=== PATIENT | male | born 1945 | race Caucasian/White ===

== ENCOUNTER 2018-01-12 10:25 | Emergency (ER) | payer MEDICARE, OTHER ==
[2018-01-12 11:18] LABS: BASOPHILS % (AUTO) 0.4 %; EOSINOPHILS % (AUTO) 0.4 %; HGB - HEMOGLOBIN 15.4 g/dL (14.0-18.0); LYMPHOCYTES # (AUTO) 0.6 10^3/uL (1.5-3.5); LYMPHOCYTES % (AUTO) 6.8 %; MEAN CORPUSCULAR HEMOGLOBIN 32.8 pg (27.0-31.0); MEAN CORPUSCULAR HGB CONC 34.5 g/dL (32.0-36.0); MEAN CORPUSCULAR VOLUME 95.1 fL (80.0-94.0); MEAN PLATELET VOLUME 10.4 fL (7.4-11.4); MONOCYTES # (AUTO) 0.4 10^3/uL (0.0-1.0); MONOCYTES % (AUTO) 5.4 %; NEUTROPHILS # (AUTO) 7.1 10^3/uL (1.5-6.6); PLT - PLATELET COUNT 113 10^3/uL (130-450); RED BLOOD COUNT 4.71 10^6/uL (4.70-6.10); RED CELL DISTRIBUTION WIDTH 13.8 % (12.0-15.0); WHITE BLOOD COUNT 8.2 x10^3/uL (4.8-10.8)
--- NOTE | 2018-01-12 11:20 | XRAY Report ---
Reason: chest pain Procedure Date: 01/12/2018 Accession Number: [id number] / [id number] Procedure: XR - Chest 2 View X-Ray CPT Code: 81131 FULL RESULT: EXAM: CHEST RADIOGRAPHY EXAM DATE: 01/12/2018 10:55 AM. CLINICAL HISTORY: Chest pain. COMPARISON: None. TECHNIQUE: 2 views. FINDINGS: Lungs/Pleura: No focal opacities evident. No pleural effusion. No pneumothorax. Normal volumes. Mediastinum: Heart and mediastinal contours are unremarkable. Other: The patient is status post median sternotomy, CABG and TAVR. IMPRESSION: No focal consolidation. RADIA
[2018-01-12 11:29] LABS: ALBUMIN 4.3 g/dL (3.2-5.5); ALBUMIN/GLOBULIN RATIO 1.6 (1.0-2.2); BILIRUBIN,TOTAL 0.7 mg/dL (0.2-1.0); CALCIUM 9.4 mg/dL (8.5-10.3); CREATININE 1.4 mg/dL (0.6-1.2)
[2018-01-12] MEDS ORDERED: KETOROLAC 60 MG/2 ML VIAL IVP STA (12:24)
--- NOTE | 2018-01-12 12:41 | ED Physician Documentation ---
PD HPI CHEST PAIN - Stated complaint Stated Complaint: CHEST PAIN - Chief complaint Chief Complaint: Cardiac - History obtained from History obtained from: Patient, Family - History of Present Illness Timing - onset: How many hours ago (9) Timing - onset during: Rest Timing - duration: Hours (9) Timing - details: Constant Pain level max: 9 Pain level now: 9 Quality: Tightness, Aching Location: Left chest Radiation: No: Jaw, Neck, Back, Abdominal, Left upper extremity, Right upper extremity Improved by: Nothing. No: Rest, Oxygen, Nitro, ASA, Antacids, Other medication Worsened by: Inspiration, Movement. No: Exertion, Eating, Palpation, Position Associated symptoms: Nausea, Vomiting (once). No: Shortness of air, Diapho resis, Feeling faint / dizzy, General Weakness, Palpitations, Cough Similar symptoms before: Has not had sx before Recently seen: Not recently seen Review of Systems Constitutional: denies: Fever, Chills Ears: denies: Ear pain Nose: denies: Rhinorrhea / runny nose, Congestion Throat: denies: Sore throat Cardiac: denies: Chest pain / pressure Respiratory: denies: Cough Skin: denies: Rash Musculoskeletal: denies: Neck pain, Back pain Neurologic: denies: Headache PD PAST MEDICAL HISTORY - Past Medical History Past Medical History: Yes Cardiovascular: Angina, Valve disorder Respiratory: Emphysema Neuro: None Endocrine/Autoimmune: None GI: Diverticulitis : Benign prostate hypertrophy HEENT: None Psych: None Musculoskeletal: None Derm: None - Past Surgical History Past Surgical History: Yes Cardiovascular: Valve replacement, Fempop bypass - Present Medications Home Medications: Ambulatory Orders Medication Instructions Recorded Confirmed Aspirin Chewable [St Yony 81 mg 01/12/18 Aspirin] Atorvastatin Calcium 200 mg 01/12/18 Colchicine 0.5 tab 01/12/18 Furosemide 40 mg 01/12/18 Meloxicam [Mobic] 15 mg PO DAILY PRN #20 tablet 01/12/18 Metoprolol Succinate/Hctz 1 tab 01/12/18 [Metoprolol ER-Hctz 25-12.5 mg] Tamsulosin [Flomax] 0.4 mg 01/12/18 - Allergies Allergies/Adverse Reactions: Allergies Allergy/AdvReac Type Severity Reaction Status Date / Time No Known Drug Allergies Allergy Verified 01/12/18 10:38 - Social History Does the pt smoke?: No Smoking Status: Never smoker Does the pt drink ETOH?: No Does the pt have substance abuse?: No - Immunizations Immunizations are current?: Yes - POLST Patient has POLST: No PD ED PE NORMAL - Vitals Vital signs reviewed: Yes - General General: Alert and oriented X 3, No acute distress - HEENT HEENT: Moist mucous membranes - Neck Neck: Supple, no meningeal sign - Cardiac Cardiac: RRR, Strong equal pulses - Respiratory Respiratory: No respiratory distress, Clear bilaterally - Abdomen Abdomen: Soft, Non tender, Non distended - Back Back: No CVA TTP, No spinal TTP - Derm Derm: Warm and dry - Extremities Extremities: No edema, No calf tenderness / cord - Neuro Neuro: Alert and oriented X 3 - Psych Psych: Normal mood, Normal affect Results - Vitals Vitals: Vital Signs - 24 hr 01/12/18 01/12/18 01/12/18 10:33 13:07 13:49 Temperature 36 C L Heart Rate 60 70 67 Respiratory 22 18 14 Rate Blood Pressure 121/83 H 107/76 104/71 O2 Saturation 96 98 97 01/12/18 14:43 Temperature Heart Rate 62 Respiratory 16 Rate Blood Pressure 109/78 O2 Saturation 96 Oxygen O2 Source Room air - EKG (time done) 1033 Rate: Rate (enter#) (58) Rhythm: NSR Intervals: Prolonged [place], LBBB Compare to prior EKG: Old EKG unavailable 1411 Rate: Rate (enter#) (62) Rhythm: NSR [place]: Normal Intervals: Prolonged AK, LBBB Compare to prior EKG: Unchanged from prior EKG - Labs Labs: Laboratory Tests 01/12/18 01/12/18 01/12/18 11:11 11:11 11:11 WBC 8.2 RBC 4.71 Hgb 15.4 Hct 44.8 MCV 95.1 H MCH 32.8 H MCHC 34.5 RDW 13.8 Plt Count 113 L MPV 10.4 Neut # (Auto) 7.1 H Lymph # (Auto) 0.6 L [place] # (Auto) 0.4 Eos # (Auto) 0.0 Baso # (Auto) 0.0 Absolute Nucleated RBC 0.00 Nucleated RBC % 0.0 Sodium 138 Potassium 4.1 Chloride 101 Carbon Dioxide 28 Anion Gap 9.0 BUN 21 H Creatinine 1.4 H Estimated GFR (MDRD) 50 L Glucose 145 H Calcium 9.4 Total Bilirubin 0.7 AST 29 ALT 25 Alkaline Phosphatase 147 H Troponin I < 0.04 Total Protein 7.0 Albumin 4.3 Globulin 2.7 Albumin/Globulin Ratio 1.6 Lipase 28 01/12/18 13:59 WBC RBC Hgb Hct MCV MCH MCHC RDW Plt Count MPV Neut # (Auto) Lymph # (Auto) [place] # (Auto) Eos # (Auto) Baso # (Auto) Absolute Nucleated RBC Nucleated RBC % Sodium Potassium Chloride Carbon Dioxide Anion Gap BUN Creatinine Estimated GFR (MDRD) Glucose Calcium Total Bilirubin AST ALT Alkaline Phosphatase Troponin I < 0.04 Total Protein Albumin Globulin Albumin/Globulin Ratio Lipase - Rads (name of study) cxr Radiology: Prelim report reviewed, EMP read contemporaneously, See rad report (No focal consolidation. ) PD MEDICAL DECISION MAKING - ED course Complexity details: reviewed results, re-evaluated patient, considered differential, d/w patient ED course: Patient with atypical constant chest pain today. Symptoms resolved with toradol. No acute findings on EKG x 2. Negative troponin x2. 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 No history of CAD. Normal cardiac stress test per pt 06/10. We will have patient follow-up closely with his PCP for further evaluation and care. Patient counseled regarding signs and symptoms for which I believe and urgent re-evaluation would be necessary. Patient with good understanding of and agreement to plan and is comfortable going home at this time This document was made in part using voice recognition software. While efforts are made to proofread this document, sound alike and grammatical errors may occur. - Sepsis Event Vital Signs: Vital Signs - 24 hr 01/12/18 01/12/18 01/12/18 10:33 13:07 13:49 Temperature 36 C L Heart Rate 60 70 67 Respiratory 22 18 14 Rate Blood Pressure 121/83 H 107/76 104/71 O2 Saturation 96 98 97 01/12/18 14:43 Temperature Heart Rate 62 Respiratory 16 Rate Blood Pressure 109/78 O2 Saturation 96 Oxygen O2 Source Room air Departure - Departure Disposition: 01 Home, Self Care Clinical Impression: Chest pain Qualifiers: Chest pain type: unspecified Qualified Code(s): R07.9 - Chest pain, unspecified Condition: Good Instructions: ED Chest Pain Atypical Unkn Cause Follow-Up: your,doctor in 3 days. [Other] Prescriptions: Meloxicam [Mobic] 15 mg PO DAILY PRN #20 tablet PRN Reason: pain Comments: Return if you worsen. Continue your aspirin at home. Follow-up closely with your doctor for further evaluation and care. Discharge Date/Time: 01/12/18 14:48
[2018-01-12 14:43] VITALS: BP 109/78
== END 2018-01-12 14:48 | disposition home or self-care (01) ==
LOC: ED 10:25
DX: R07.9 Chest pain, unspecified (principal); I44.7 Left bundle-branch block, unspecified; Z95.2 Presence of prosthetic heart valve; Z95.1 Presence of aortocoronary bypass graft; Z79.82 Long term (current) use of aspirin
CPT/HCPCS: 36415; 71046; 80053; 83690; 84484; 85025; 93005; 96374; 99284

== ENCOUNTER 2018-10-01 12:39 | Inpatient (IN) | payer MEDICAID, MEDICARE ==
[2018-10-01] MEDS ORDERED: ONDANSETRON 4 MG/2 ML VIAL IVP STA (13:03)
[2018-10-01] MEDS ORDERED: SODIUM CHLORIDE 0.9% 1,000 ML IV ONE (13:03)
[2018-10-01] MEDS ORDERED: HYDROmorphone 1 MG/ML CARPUJECT IVP STA (13:03)
--- NOTE | 2018-10-01 13:09 | ED Physician Documentation ---
PD HPI ABD PAIN - Stated complaint Stated Complaint: ABD PX - Chief complaint Chief Complaint: Abd Pain - History obtained from History obtained from: Patient, Family - History of Present Illness Timing - onset: How many days ago (3) Timing - duration: Days (3) Timing - details: Gradual onset (after eating) Pain level max: 7 Pain level now: 7 Quality: Aching, Other (can't get comfortable) Location: RUQ Radiation: Right shoulder Improved by: Other (after taking a melatonin) Worsened by: Eating Associated symptoms: Nausea, Vomiting. No: Fever, Hematemesis, Diarrhea, Constipation, Melena, Hematochezia, Dysuria, Hematuria, Chest pain, Dizzy, Near syncope / syncope Similar symptoms before: Has not had sx before Recently seen: Not recently seen - Additional information Additional information: Patient states pain got a little worse after eating. Hasn't been able to sleep much because of the pain. Last meal was this morning at 9am. He ate a little bit of yogurt. Can barely eat because of pain. Vomited once today. Review of Systems Ten Systems: 10 systems reviewed and negative Constitutional: denies: Fever, Chills Cardiac: denies: Chest pain / pressure Respiratory: denies: Dyspnea GI: reports: Abdominal Pain, Nausea, Vomiting. denies: Diarrhea, Hematemesis Skin: denies: Rash Neurologic: denies: Generalized weakness PD PAST MEDICAL HISTORY - Past Medical History Past Medical History: Yes Cardiovascular: Angina, Valve disorder Respiratory: Emphysema Neuro: None Endocrine/Autoimmune: None GI: Diverticulitis : Benign prostate hypertrophy HEENT: None Psych: None Musculoskeletal: None Derm: None - Past Surgical History Past Surgical History: Yes Cardiovascular: Valve replacement, Fempop bypass - Present Medications Home Medications: Ambulatory Orders Medication Instructions Recorded Confirmed Aspirin Chewable [St Yony 81 mg 01/12/18 Aspirin] Atorvastatin Calcium 200 mg 01/12/18 Colchicine 0.5 tab 01/12/18 Furosemide 40 mg 01/12/18 Meloxicam [Mobic] 15 mg PO DAILY PRN #20 tablet 01/12/18 Metoprolol Succinate/Hctz 1 tab 01/12/18 [Metoprolol ER-Hctz 25-12.5 mg] Tamsulosin [Flomax] 0.4 mg 01/12/18 - Allergies Allergies/Adverse Reactions: Allergies Allergy/AdvReac Type Severity Reaction Status Date / Time No Known Drug Allergies Allergy Verified 01/12/18 10:38 - Social History Does the pt smoke?: No Smoking Status: Never smoker Does the pt drink ETOH?: No Does the pt have substance abuse?: No - Immunizations Immunizations are current?: Yes - POLST Patient has POLST: No PD ED PE NORMAL - Vitals Vital signs reviewed: Yes - General General: Alert and oriented X 3, No acute distress, Well developed/nourished - HEENT HEENT: Atraumatic, Pharynx benign - Neck Neck: Supple, no meningeal sign, No JVD - Cardiac Cardiac: RRR, No murmur, No gallop, No rub - Respiratory Respiratory: No respiratory distress - Abdomen Abdomen: Soft, Non distended, Other (moderate RUQ tenderness, positive [place] sign) - Male Male : Deferred - Rectal Rectal: Deferred - Derm Derm: Normal color, Warm and dry, No rash - Extremities Extremities: No deformity - Neuro Neuro: Alert and oriented X 3 Eye Opening: Spontaneous Motor: Obeys Commands Verbal: Oriented GCS Score: 15 - Psych Psych: Normal mood, Normal affect Results - Vitals Vitals: Vital Signs - 24 hr 10/01/18 10/01/18 10/01/18 12:43 12:50 13:20 Temperature 36.5 C Heart Rate 42 L 42 L 72 Respiratory 18 18 16 Rate Blood Pressure 92/66 92/66 91/57 L O2 Saturation 97 97 92 10/01/18 10/01/18 10/01/18 13:30 14:00 14:30 Temperature Heart Rate 76 72 70 Respiratory 16 18 16 Rate Blood Pressure 92/58 L 98/70 109/43 L O2 Saturation 92 92 100 10/01/18 10/01/18 10/01/18 14:50 14:59 15:00 Temperature Heart Rate 68 71 70 Respiratory 16 Rate Blood Pressure 87/43 L 95/65 95/65 O2 Saturation 87 L 95 95 10/01/18 10/01/18 15:30 16:30 Temperature Heart Rate 67 71 Respiratory 16 16 Rate Blood Pressure 98/71 93/65 O2 Saturation 93 95 Oxygen O2 Source Nasal cannula - Labs Labs: Laboratory Tests 10/01/18 10/01/18 10/01/18 13:15 13:15 13:15 WBC 16.7 H RBC 4.53 L Hgb 14.4 Hct 42.5 MCV 93.7 MCH 31.8 H MCHC 33.9 RDW 13.9 Plt Count 102 L MPV 10.6 Neut # (Auto) 14.2 H Lymph # (Auto) 0.8 L [place] # (Auto) 1.6 H Eos # (Auto) 0.0 Baso # (Auto) 0.1 Absolute Nucleated RBC 0.00 Band Neuts % (Manual) Not Reportable Abnorm Lymph % (Manual) Not Reportable Nucleated RBC % 0.0 Neutrophils # (Manual) Not Reportable Lymphocytes # (Manual) Not Reportable Monocytes # (Manual) Not Reportable Eosinophils # (Manual) Not Reportable Basophils # (Manual) Not Reportable Differential Comment MANUAL=AUTO DIFF Manual Slide Review Indicated WBC Morphology NORMAL APPEARANCE Platelet Estimate DECREASED (<130,000) Platelet Morphology 1+ LARGE PLATELETS RBC Morph Micro Appear NORMAL APPEARANCE PT INR Sodium 133 L Potassium 3.9 Chloride 93 L Carbon Dioxide 26 Anion Gap 14.0 H BUN 47 H Creatinine 2.0 H Estimated GFR (MDRD) 33 L Glucose 109 H Lactic Acid Calcium 9.2 Total Bilirubin 2.2 H AST 20 ALT 19 Alkaline Phosphatase 105 B-Natriuretic Peptide Total Protein 6.8 Albumin 3.6 Globulin 3.2 Albumin/Globulin Ratio 1.1 Lipase 23 22 Urine Color Urine Clarity Urine pH Ur Specific [place] Urine Protein Urine Glucose (UA) Urine Ketones Urine Occult Blood Urine Nitrite Urine Bilirubin Urine Urobilinogen Ur Leukocyte Esterase Ur Microscopic Review Urine Culture Comments 10/01/18 10/01/18 10/01/18 13:15 13:18 16:26 WBC RBC Hgb Hct MCV MCH MCHC RDW Plt Count MPV Neut # (Auto) Lymph # (Auto) [place] # (Auto) Eos # (Auto) Baso # (Auto) Absolute Nucleated RBC Band Neuts % (Manual) Abnorm Lymph % (Manual) Nucleated RBC % Neutrophils # (Manual) Lymphocytes # (Manual) Monocytes # (Manual) Eosinophils # (Manual) Basophils # (Manual) Differential Comment Manual Slide Review WBC Morphology Platelet Estimate Platelet Morphology RBC Morph Micro Appear PT 13.8 H INR 1.2 Sodium Potassium Chloride Carbon Dioxide Anion Gap BUN Creatinine Estimated GFR (MDRD) Glucose Lactic Acid 1.2 Calcium Total Bilirubin AST ALT Alkaline Phosphatase B-Natriuretic Peptide Total Protein Albumin Globulin Albumin/Globulin Ratio Lipase Urine Color YELLOW Urine Clarity CLEAR Urine pH 5.5 Ur Specific [place] 1.010 Urine Protein NEGATIVE Urine Glucose (UA) NEGATIVE Urine Ketones NEGATIVE Urine Occult Blood NEGATIVE Urine Nitrite NEGATIVE Urine Bilirubin NEGATIVE Urine Urobilinogen 0.2 (NORMAL) Ur Leukocyte Esterase NEGATIVE Ur Microscopic Review NOT INDICATED Urine Culture Comments NOT INDICATED 10/01/18 16:26 WBC RBC Hgb Hct MCV MCH MCHC RDW Plt Count MPV Neut # (Auto) Lymph # (Auto) [place] # (Auto) Eos # (Auto) Baso # (Auto) Absolute Nucleated RBC Band Neuts % (Manual) Abnorm Lymph % (Manual) Nucleated RBC % Neutrophils # (Manual) Lymphocytes # (Manual) Monocytes # (Manual) Eosinophils # (Manual) Basophils # (Manual) Differential Comment Manual Slide Review WBC Morphology Platelet Estimate Platelet Morphology RBC Morph Micro Appear PT INR Sodium Potassium Chloride Carbon Dioxide Anion Gap BUN Creatinine Estimated GFR (MDRD) Glucose Lactic Acid Calcium Total Bilirubin AST ALT Alkaline Phosphatase B-Natriuretic Peptide 46 Total Protein Albumin Globulin Albumin/Globulin Ratio Lipase Urine Color Urine Clarity Urine pH Ur Specific [place] Urine Protein Urine Glucose (UA) Urine Ketones Urine Occult Blood Urine Nitrite Urine Bilirubin Urine Urobilinogen Ur Leukocyte Esterase Ur Microscopic Review Urine Culture Comments - Rads (name of study) No standard instances Radiology: Final report received (RUQ US demonstrates acute cholecystitis with CBD of 13mm) PD MEDICAL DECISION MAKING - ED course Complexity details: reviewed results, re-evaluated patient, considered carson haq, d/w patient, d/w family ED course: DDx - appendicitis, cholecystitis, cholelithiasis, pancreatitis, gastritis, PUD, kidney stone 72 y/o M with RUQ abdominal pain, + murphys, leukocytosis present with L shift. Bedside US shows a large gallstone with GB wall thickening. Radiology US confirms the same and measured CBD of 13mm c/w cholecystitis. elevated bilirubin on LFts. Pt feels better after dilaudid. Pt given IV fluids though states SBP of 95 is normal for him. Discussed case with - surgery and initiated antibiotics - zosyn. Dr Whitfield requested a CT abd/pelvis to further evaluate his pancreas. Pt is NPO. Admitted to Surgery for likely OR. Departure - Departure Disposition: 66 [facility] DC/Xfer Clinical Impression: Acute cholecystitis Condition: Stable Record reviewed to determine appropriate education?: Yes
[2018-10-01 13:35] LABS: GLUCOSE, URINE (UA) NEGATIVE (NEGATIVE); KETONES,URINE (UA) NEGATIVE (NEGATIVE); LEUKOCYTE ESTERASE, URINE NEGATIVE (NEGATIVE); NITRITE,URINE NEGATIVE (NEGATIVE); OCCULT BLOOD,URINE NEGATIVE (NEGATIVE); PH,URINE 5.5 PH (5.0-7.5); PROTEIN,URINE NEGATIVE (NEGATIVE); UROBILINOGEN,URINE 0.2 (NORMAL) E.U./dL (NORMAL)
[2018-10-01 13:37] LABS: BASOPHILS # (AUTO) 0.1 10^3/uL (0.0-0.1); BASOPHILS % (AUTO) 0.7 %; HGB - HEMOGLOBIN 14.4 g/dL (14.0-18.0); LYMPHOCYTES # (AUTO) 0.8 10^3/uL (1.5-3.5); LYMPHOCYTES % (AUTO) 4.6 %; MEAN CORPUSCULAR HEMOGLOBIN 31.8 pg (27.0-31.0); MEAN CORPUSCULAR HGB CONC 33.9 g/dL (32.0-36.0); MEAN CORPUSCULAR VOLUME 93.7 fL (80.0-94.0); MEAN PLATELET VOLUME 10.6 fL (7.4-11.4); MONOCYTES # (AUTO) 1.6 10^3/uL (0.0-1.0); MONOCYTES % (AUTO) 9.8 %; NEUTROPHILS # (AUTO) 14.2 10^3/uL (1.5-6.6); NEUTROPHILS % (AUTO) 84.9 %; PLT - PLATELET COUNT 102 10^3/uL (130-450); RED BLOOD COUNT 4.53 10^6/uL (4.70-6.10); RED CELL DISTRIBUTION WIDTH 13.9 % (12.0-15.0); WHITE BLOOD COUNT 16.7 x10^3/uL (4.8-10.8)
[2018-10-01 13:44] LABS: CLARITY,URINE CLEAR (CLEAR)
[2018-10-01 13:45] LABS: BILIRUBIN,URINE NEGATIVE (NEGATIVE); ICTOTEST,URINE NEGATIVE
[2018-10-01 13:52] LABS: ALBUMIN 3.6 g/dL (3.2-5.5); ALBUMIN/GLOBULIN RATIO 1.1 (1.0-2.2); BILIRUBIN,TOTAL 2.2 mg/dL (0.2-1.0); CALCIUM 9.2 mg/dL (8.5-10.3); TOTAL PROTEIN 6.8 g/dL (6.7-8.2)
[2018-10-01 14:16] LABS: PLATELET ESTIMATE, MANUAL DECREASED (<130,000) (NORMAL); PLATELET MORPHOLOGY 1+ LARGE PLATELETS (NORMAL); RBC MORPHOLOGY (MULTIPLE) NORMAL APPEARANCE (NORMAL)
[2018-10-01 14:17] LABS: DIFFERENTIAL COMMENT MANUAL=AUTO DIFF
--- NOTE | 2018-10-01 14:48 | Ultrasound Report ---
Reason: RUQ, gallstone present Procedure Date: 10/01/2018 Accession Number: [id number] / [id number] Procedure: US - Abdomen Limited CPT Code: FULL RESULT: EXAM: ABDOMEN ULTRASOUND LIMITED, RUQ EXAM DATE: 10/01/2018 02:32 PM. CLINICAL HISTORY: RUQ, gallstone present. COMPARISON: None. TECHNIQUE: Real-time scanning was performed with static images obtained. FINDINGS: Liver: There is diffuse increased echotexture of the hepatic parenchyma, suggestive of steatosis. There are smaller hypoechoic ill-defined regions in the liver with nonfocal appearance, most consistent with fatty sparing. 18.4 cm. Main portal vein flow: Hepatopetal. Gallbladder: Single shadowing nonmobile gallstone is seen in the neck measuring 2.3 x 1.7 x 1.6 cm. There is intraluminal sludge. Gallbladder wall is thick and edematous and irregular. Sonographic Mullen sign is positive. Overall findings suggestive of acute calculus cholecystitis. Biliary System: CBD measures 13 mm, however no distal CBD mass noted. Mild intrahepatic or extrahepatic ductal dilatation. Other: Normal-appearing right kidney. No hydronephrosis. IMPRESSION: Single shadowing gallstone in the neck of the gallbladder with thickened, edematous, irregular wall and tenderness in right upper quadrant. Findings favor acute calculus cholecystitis. Dilated CBD, measuring 13 mm. Diffuse increased echotexture of liver with smaller hypoechoic ill-defined regions with nonfocal appearance. Most consistent with focal fatty sparing. Dilated CBD and mild intrahepatic biliary radicle dictation. However, no distal CBD mass. RADIA
[2018-10-01] MEDS ORDERED: PIPERACILLIN/TAZOBACTAM 3.375 GM in SODIUM CHLORIDE 0.9% MINIBAG 100 ML IV STA (15:05)
[2018-10-01] MEDS ORDERED: IOVERSOL 320 100 ML VIAL IVP ONE (15:52)
--- NOTE | 2018-10-01 16:07 | HISTORY & PHYSICAL EXAMINATION ---
Chief Complaint - Chief Complaint Chief Complaint: Abdominal pain with associated nausea and emesis, anorexia and generalized Abdominal Pain HPI - History Obtained From Records Reviewed: RN notes reviewed History obtained from: Patient Exam limitations: No limitations - History of Present Illness Severity at the worst: Moderate Pain Quality: Sharp Context-Pain started w/: Eating Improved with: Oxygen Worsened by: Eating Associated symptoms: Nausea, Vomiting, General Weakness HPI Comment/Other: This is a pleasant 72-year-old male with multiple cardiovascular comorbidities to include an aortic valve repair x2 at the [facility] (bioprosthetic valve), hypertension, hyperlipidemia, non-O2 dependent COPD- emphysema, diverticulitis, BPH, previous femoropopliteal bypass who presents to the ER with 1 or 2-day history of worsening right upper quadrant abdominal pain with associated anorexia exacerbated by eating. Patient's last meal was this a.m. at 9, a little bit a yogurt but can barely eat due to the pain. Had nonbilious non-bloody emesis x1. In the ED patient had a white count of 16.7, pl atelets of 102, sodium 133, creatinine of 2.0, ultrasound of the abdomen showed gallstone neck of gallbladder with thickened edematous and irregular wall tenderness with positive Mullen sign consistent with an acute calculus cholecystitis. Medical consultation was requested by Dr. Ankur Whitfield for the reason of medical management for patient's cardiovascular comorbidities. PMH/PSH - Past Medical History Cardiovascular: positive: Angina, Valve disorder Respiratory: positive: Emphysema Neuro: positive: None Endocrine/Autoimmune: positive: None GI: positive: Diverticulitis : positive: Benign prostate hypertrophy HEENT: positive: None Psych: positive: None Musculoskeletal: positive: None Derm: positive: None - Past Surgical History Cardiovascular: positive: Valve replacement, Fempop bypass Social & Family Hx - Social History Does the pt smoke?: No Smoking Status: Never smoker Does the pt drink ETOH?: No Does the pt have substance abuse?: No - POLST Patient has POLST: No Meds/Allgy - Home Medications Home Medications: Ambulatory Orders Medication Instructions Recorded Confirmed Aspirin Chewable [[facility] [place]ony 81 mg 01/12/18 Aspirin] Atorvastatin Calcium 200 mg 01/12/18 Colchicine 0.5 tab 01/12/18 Furosemide 40 mg 01/12/18 Meloxicam [Mobic] 15 mg PO DAILY PRN #20 tablet 01/12/18 Metoprolol Succinate/Hctz 1 tab 01/12/18 [Metoprolol ER-Hctz 25-12.5 mg] Tamsulosin [Flomax] 0.4 mg 01/12/18 - Allergies Allergies/Adverse Reactions: Allergies Allergy/AdvReac Type Severity Reaction Status Date / Time No Known Drug Allergies Allergy Verified 01/12/18 10:38 Review of Systems - All Other Systems All Other Systems: reports: Reviewed and negative Prior Level of Functionality: Patient has functional capacity that is independent, performs home ADLs adequately Exam - Vital Signs Reviewed Vital Signs: Yes Vital Signs: Vital Signs x48h Temp Pulse Resp BP Pulse Ox 10/01/18 15:30 67 16 98/71 93 10/01/18 15:00 70 16 95/65 95 10/01/18 14:59 71 95/65 95 10/01/18 14:50 68 87/43 L 87 L 10/01/18 14:30 70 16 109/43 L 100 10/01/18 14:00 72 18 98/70 92 10/01/18 13:30 76 16 92/58 L 92 10/01/18 13:20 72 16 91/57 L 92 10/01/18 12:50 42 L 18 92/66 97 10/01/18 12:43 36.5 C 42 L 18 92/66 97 - Physical Exam General Appearance: positive: No acute distress, Alert, Anxious Eyes Bilateral: positive: Normal inspection, PERRL, EOMI ENT: positive: ENT inspection nml, Pharynx nml, No signs of dehydration Neck: positive: Nml inspection, Thyroid nml, No JVD, Trachea midline. negative: Thyromegaly Respiratory: positive: Chest non-tender, No respiratory distress, Breath sounds nml Cardiovascular: positive: Regular rate & rhythm, Systolic murmur (Aortic crescendo decrescendo type murmur). negative: No gallop, PMI displaced laterally, JVD present, Gallop/S3 Peripheral Pulses: positive: 2+ Abdomen: positive: No organomegaly, No distention, Tenderness (Right upper quadrant pain). negative: Guarding, Rebound, Hepatomegaly, Splenomegaly, Abnml bowel sounds, Bruit Back: positive: Nml inspection Skin: positive: Color nml, No rash, Warm Extremities: positive: Non-tender, Full ROM, Nml appearance, Pedal edema Neurologic/Psychiatric: positive: Oriented x3, CN's nml (2-12) Results - Lab Results Lab results reviewed: Yes Fish Bones: 10/01/18 13:15 10/01/18 13:15 Other Lab Results: Lab Results x24hrs 10/01/18 10/01/18 10/01/18 Range/Units 13:18 13:15 13:15 WBC (4.8-10.8) x10^3/uL RBC (4.70-6.10) 10^6/uL Hgb (14.0-18.0) g/dL Hct (42.0-52.0) % MCV (80.0-94.0) fL MCH (27.0-31.0) pg MCHC (32.0-36.0) g/dL RDW (12.0-15.0) % Plt Count (130-450) 10^3/uL MPV (7.4-11.4) fL Neut # (Auto) (1.5-6.6) 10^3/uL Lymph # (Auto) (1.5-3.5) 10^3/uL [place] # (Auto) (0.0-1.0) 10^3/uL Eos # (Auto) (0.0-0.7) 10^3/uL Baso # (Auto) (0.0-0.1) 10^3/uL Absolute Nucleated RBC x10^3/uL Band Neuts % (Manual) Abnorm Lymph % (Manual) Nucleated RBC % /100WBC Neutrophils # (Manual) Lymphocytes # (Manual) Monocytes # (Manual) Eosinophils # (Manual) Basophils # (Manual) Differential Comment Manual Slide Review WBC Morphology (NORMAL) Platelet Estimate (NORMAL) Platelet Morphology (NORMAL) RBC Morph Micro Appear (NORMAL) Sodium (135-145) mmol/L Potassium (3.5-5.0) mmol/L Chloride (101-111) mmol/L Carbon Dioxide (21-32) mmol/L Anion Gap (6-13) BUN (6-20) mg/dL Creatinine (0.6-1.2) mg/dL Estimated GFR (MDRD) (>89) Glucose (70-100) mg/dL Lactic Acid 1.2 (0.5-2.2) mmol/L Calcium (8.5-10.3) mg/dL Total Bilirubin (0.2-1.0) mg/dL AST (10-42) IU/L ALT (10-60) IU/L Alkaline Phosphatase (42-121) IU/L Total Protein (6.7-8.2) g/dL Albumin (3.2-5.5) g/dL Globulin (2.1-4.2) g/dL Albumin/Globulin Ratio (1.0-2.2) Lipase 22 (22-51) U/L Urine Color YELLOW Urine Clarity CLEAR (CLEAR) Urine pH 5.5 (5.0-7.5) PH Ur Specific [place] 1.010 (1.002-1.030) Urine Protein NEGATIVE (NEGATIVE) mg/dL Urine Glucose (UA) NEGATIVE (NEGATIVE) mg/dL Urine Ketones NEGATIVE (NEGATIVE) mg/dL Urine Occult Blood NEGATIVE (NEGATIVE) Urine Nitrite NEGATIVE (NEGATIVE) Urine Bilirubin NEGATIVE (NEGATIVE) Urine Urobilinogen 0.2 (NORMAL) (NORMAL) E.U./dL Ur Leukocyte Esterase NEGATIVE (NEGATIVE) Ur Microscopic Review NOT INDICATED Urine Culture Comments NOT INDICATED 10/01/18 10/01/18 Range/Units 13:15 13:15 WBC 16.7 H (4.8-10.8) x10^3/uL RBC 4.53 L (4.70-6.10) 10^6/uL Hgb 14.4 (14.0-18.0) g/dL Hct 42.5 (42.0-52.0) % MCV 93.7 (80.0-94.0) fL MCH 31.8 H (27.0-31.0) pg MCHC 33.9 (32.0-36.0) g/dL RDW 13.9 (12.0-15.0) % Plt Count 102 L (130-450) 10^3/uL MPV 10.6 (7.4-11.4) fL Neut # (Auto) 14.2 H (1.5-6.6) 10^3/uL Lymph # (Auto) 0.8 L (1.5-3.5) 10^3/uL [place] # (Auto) 1.6 H (0.0-1.0) 10^3/uL Eos # (Auto) 0.0 (0.0-0.7) 10^3/uL Baso # (Auto) 0.1 (0.0-0.1) 10^3/uL Absolute Nucleated RBC 0.00 x10^3/uL Band Neuts % (Manual) Not Reportable Abnorm Lymph % (Manual) Not Reportable Nucleated RBC % 0.0 /100WBC Neutrophils # (Manual) Not Reportable Lymphocytes # (Manual) Not Reportable Monocytes # (Manual) Not Reportable Eosinophils # (Manual) Not Reportable Basophils # (Manual) Not Reportable Differential Comment MANUAL=AUTO DIFF Manual Slide Review Indicated WBC Morphology NORMAL APPEARANCE (NORMAL) Platelet Estimate DECREASED (<130,000) (NORMAL) Platelet Morphology 1+ LARGE PLATELETS (NORMAL) RBC Morph Micro Appear NORMAL APPEARANCE (NORMAL) Sodium 133 L (135-145) mmol/L Potassium 3.9 (3.5-5.0) mmol/L Chloride 93 L (101-111) mmol/L Carbon Dioxide 26 (21-32) mmol/L Anion Gap 14.0 H (6-13) BUN 47 H (6-20) mg/dL Creatinine 2.0 H (0.6-1.2) mg/dL Estimated GFR (MDRD) 33 L (>89) Glucose 109 H (70-100) mg/dL Lactic Acid (0.5-2.2) mmol/L Calcium 9.2 (8.5-10.3) mg/dL Total Bilirubin 2.2 H (0.2-1.0) mg/dL AST 20 (10-42) IU/L ALT 19 (10-60) IU/L Alkaline Phosphatase 105 (42-121) IU/L Total Protein 6.8 (6.7-8.2) g/dL Albumin 3.6 (3.2-5.5) g/dL Globulin 3.2 (2.1-4.2) g/dL Albumin/Globulin Ratio 1.1 (1.0-2.2) Lipase 23 (22-51) U/L Urine Color Urine Clarity (CLEAR) Urine pH (5.0-7.5) PH Ur Specific [place] (1.002-1.030) Urine Protein (NEGATIVE) mg/dL Urine Glucose (UA) (NEGATIVE) mg/dL Urine Ketones (NEGATIVE) mg/dL Urine Occult Blood (NEGATIVE) Urine Nitrite (NEGATIVE) Urine Bilirubin (NEGATIVE) Urine Urobilinogen (NORMAL) E.U./dL Ur Leukocyte Esterase (NEGATIVE) Ur Microscopic Review Urine Culture Comments - Diagnostic Imaging Results Diagnostic Imaging Results: positive: Final report reviewed - EKG Results EKG Interpreted Independently: Yes EKG Comparison: positive: No prior EKG Sepsis Event Note (H) - Evaluation Current Stage of Sepsis: Sepsis Confirmed Source and Organism (if known) of Sepsis: Acute Calculus cholecystitis - Sepsis Criteria Sepsis Criteria: Respiratory: Increasing oxygen requirements, WBC count greater than 12,000 or less than 4000, Hepatic: Bilirubin greater than 2mg/dl Impression/Plan - Problem List Problem List: 1. Acute cholecystitis Abdominal ultrasound shows an acute calculus cholecystitis with gallstone in the neck of the gallbladder with associated thickening and edematous irregular wall with positive Mullen sign. CT abdomen pelvis to confirm. Possible HIDA scan. Dr. Whitfield aware and may perform surgery today or in a.m. N.p.o. status, Dilaudid as needed, Chest x-ray shows linear atelectasis but no infiltrates, BNP, INR, UA are unremarkable. Patient will get 2 sets of blood cultures how ever IV Zosyn has been given in the ED. 2. Sepsis secondary to #1 IV Zosyn started in the ED. We will continue with Zosyn postoperatively. Patient will likely receive preoperative IV antibiotics. Lactic acid was only 1.2. However patient had hypotension of 98/71 likely related to metoprolol ta abiodun earlier. Blood cultures x2 were ordered after patient was given Zosyn 1 dose in the ED. Continue with early goal-directed therapy if indicated with IV fluid resuscitation. 3. Acute renal insufficiency superimposed on chronic kidney disease Patient's prior creatinine was 1.4 unknown baseline however chronic kidney disease stage II underlying. Avoid nephrotoxic agents, of note patient had been on UltraSling, Lasix, as well as a combination of metoprolol ER/hydrochlorothiazide in the setting of acute nausea with emesis with GI losses. Component of prerenal azotemia likely. 4. Thrombocytopenia Likely secondary to sepsis and infection. We will continue to monitor. Currently off of aspirin as this would likely exacerbate thrombocytopenia. 5. Preoperative medical/cardiac assessmentPatient had a revised cardiac risk index of class II [id number], 6.0% 30-day risk of MT, cardiac arrest and/or . In addition patient had a group to perioperative risk of 0.7% JUSTIN, risk of MT, cardiac arrest, intraoperatively or up to 30-day postoperative. 6. Hyponatremia Likely secondary to GI losses. We will continue with IV fluids, patient is n.p.o., will continue to correct underlying electrolyte disturbances, check magnesium and correct. 7. Hyperlipidemia Unknown fasting lipid panel was previously on atorvastatin will hold for now in anticipation of lap scopic cholecystectomy 8. Hypertension Was previously on metoprolol ER/hydrochlorothiazide along with Lasix. Will hold for now. 9. History of gout Was on colchicine will be placed on hold for now 10. Non-O2 dependent COPD/emphysema Due to evidence of atelectasis seen on chest x-ray Postoperative incentive spirometry with pulmonary toileting essential. 11. Advance care education planning Patient has elected on full CODE STATUS with full treatment, trajectory of illness medical conditions as well as plan of care discussed with goals of care and trajectory of illness postoperatively, risks and benefits discussed. Patient would like aggressive medical management at this point. Would initiate DVT/GI prophylaxis: IV Protonix, DVT prophylaxis with SCD boots only. CODE STATUS: Full code Core Measures - Issues Hospital Issues and Management Plan: Patient to have possible laparoscopic cholecystectomy based on preoperative risk assessment and having cardiac/medical clearance for surgery. Medical management for cardiovascular medical issues. - DVT/VTE - Prophylaxis VTE/DVT Device ordered at admit?: Yes VTE/DVT Prophylaxis med ordered at admit?: No Not Ordered - Medical Reason: Not indicated - Stroke - Rehab Assessment Rehab services assessment to be ordered?: No Not Ordered - Medical Reason: Not indicated - AMI - Statin at Admit Aspirin Prescribed on Admit: No Not Ordered - Medical Reason: Not indicated
--- NOTE | 2018-10-01 16:28 | CT Report ---
Reason: cbd dilation, need eval of pancreas Procedure Date: 10/01/2018 Accession Number: [id number] / [id number] Procedure: CT - Abdomen/Pelvis W CPT Code: FULL RESULT: EXAM: CT ABDOMEN AND PELVIS EXAM DATE: 10/01/2018 04:06 PM. CLINICAL HISTORY: Cbd dilation, need eval of pancreas. COMPARISONS: ABDOMEN LIMITED 10/01/2018 1:24 PM. TECHNIQUE: Routine helical CT imaging was performed through the abdomen and pelvis. IV contrast: . Enteric contrast: No. Reconstructions: Coronal and sagittal. In accordance with CT protocol optimization, one or more of the following dose reduction techniques were utilized for this exam: automated exposure control, adjustment of mA and/or KV based on patient size, or use of iterative reconstructive technique. FINDINGS: Lung Bases: Atelectatic scarring is seen in right middle lobe, lingula and both lung bases. Liver: Hepatic steatosis. Gallbladder/Bile Ducts: Distended with a hyperdense calculus in the neck of the gallbladder, measuring 2.7 x 2 cm. Mucosal hyperenhancement with pericholecystic fluid and fat stranding is most suggestive of acute cholecystitis. CBD is dilated, measures 17 mm at the level of pancreatic head however no distal CBD calculus or mass. No periampullary or pancreatic head mass. Pancreatic parenchyma appears unremarkable. Spleen: Normal. Pancreas: Normal. Adrenal Glands: Normal. Kidneys: Normal. No masses or hydronephrosis. Peritoneal Cavity/Bowel: There is diffuse colonic diverticulosis however no diverticulitis. No free fluid, free air or adenopathy. No masses or acute inflammatory process. Status post appendectomy. Pelvic Organs: Normal. The bladder and visualized pelvic organs are within normal limits. Vasculature: No aneurysms or other significant abnormality. Bones: No significant abnormality. Other: None. IMPRESSION: CT findings favor acute calculus cholecystitis with a large oval-shaped hyperdense calculus in the neck of the gallbladder. Dilated CBD, 17 mm. However no distal CBD, pancreatic or periampullary mass. Diffuse colonic diverticulosis however no diverticulitis. Status post appendectomy. RADIA
[2018-10-01] MEDS ORDERED: HYDROmorphone 1 MG/ML CARPUJECT IVP PRN (16:31)
[2018-10-01 16:41] LABS: INR 1.2 (0.8-1.2); PT - PROTHROMBIN TIME 13.8 secs (9.9-12.6)
--- NOTE | 2018-10-01 16:55 | XRAY Report ---
Reason: Shortness of breath with a history of COPD Procedure Date: 10/01/2018 Accession Number: [id number] / [id number] Procedure: XR - Chest 1 View X-Ray CPT Code: 02624 FULL RESULT: EXAM: CHEST RADIOGRAPHY EXAM DATE: 10/01/2018 04:34 PM. CLINICAL HISTORY: Shortness of breath with a history of COPD. COMPARISON: CHEST 2 VIEW 01/12/2018 10:44 AM ABDOMEN/PELVIS W/ 10/01/2018 4:06 PM. TECHNIQUE: 1 view. FINDINGS: Lungs/Pleura: There is reticular opacity within the right midlung which could represent atelectasis. No evidence of lobar infiltrate or large effusion. No pneumothorax. Mediastinum: There is mild cardiomegaly. Patient has undergone median sternotomy. Prosthetic aortic valve is in place. Other: None. IMPRESSION: 1. There is cardiomegaly. 2. Lung volumes are somewhat low. 3. Linear opacity within the right midlung may represent atelectasis. 4. No evidence of lobar infiltrate. No pneumothorax. RADIA
[2018-10-01] MEDS ORDERED: DEXTROSE 5%-0.9% NACL 1,000 ML IV SCH (17:00)
--- NOTE | 2018-10-01 17:04 | ANESTHESIA ---
Pre-Anesthesia VS, & Labs - Diagnosis cholelithiasis - Procedure laparoscopic cholecystectomy Vital Signs: Temp Pulse Resp BP Pulse Ox 36.5 C 71 16 93/65 95 10/01/18 12:43 10/01/18 16:30 10/01/18 16:30 10/01/18 16:30 10/01/18 16:30 Height 6 ft Weight (kg) 104.326 kg Body Mass Index 31.1 - NPO >8 hours - Lab Results Current Lab Results: Laboratory Tests 10/01/18 16:26: PT 13.8 H, INR 1.2 10/01/18 13:15: Lactic Acid 1.2 10/01/18 13:15: Lipase 22 10/01/18 13:15: Sodium 133 L, Potassium 3.9, Chloride 93 L, Carbon Dioxide 26, Anion Gap 14.0 H, BUN 47 H, Creatinine 2.0 H, Estimated GFR (MDRD) 33 L, Glucose 109 H, Calcium 9.2, Total Bilirubin 2.2 H, AST 20, ALT 19, Alkaline Phosphatase 105, Total Protein 6.8, Albumin 3.6, Globulin 3.2, Albumin/Globulin Ratio 1.1, Lipase 23 10/01/18 13:15: WBC 16.7 H, RBC 4.53 L, Hgb 14.4, Hct 42.5, MCV 93.7, MCH 31.8 H , MCHC 33.9, RDW 13.9, Plt Count 102 L, MPV 10.6, Neut # (Auto) 14.2 H, Lymph # (Auto) 0.8 L, [place] # (Auto) 1.6 H, Eos # (Auto) 0.0, Baso # (Auto) 0.1, Absolute Nucleated RBC 0.00, Band Neuts % (Manual) Not Reportable, Abnorm Lymph % (Manual) Not Reportable, Nucleated RBC % 0.0, Neutrophils # (Manual) Not Reportable, Lymphocytes # (Manual) Not Reportable, Monocytes # (Manual) Not Reportable, Eosinophils # (Manual) Not Reportable, Basophils # (Manual) Not Reportable, Differential Comment MANUAL=AUTO DIFF, Manual Slide Review Indicated, WBC Morphology NORMAL APPEARANCE, Platelet Estimate DECREASED (<130,000), Platelet Morphology 1+ LARGE PLATELETS, RBC Morph Micro Appear NORMAL APPEARANCE Lab results reviewed: Yes Fish Bones: 10/01/18 13:15 10/01/18 13:15 Home Medications and Allergies Active Medications Hydromorphone HCl (Dilaudid (Vial)) 1 mg IVP Q2H PRN PRN Reason: PAIN Dextrose/Sodium Chloride (D5ns) 1,000 mls @ 125 mls/hr IV .Q8H MARTINEZ Piperacillin Sod/Tazobactam (Sod 4.5 gm/ Sodium Chloride) 100 mls @ 200 mls/hr IV Q6H MARTINEZ Pantoprazole Sodium (Protonix) 40 mg IV BID MARTINEZ Aspirin Chewable [St [place]ony Aspirin] 81 mg 01/12/18 Atorvastatin Calcium 200 mg 01/12/18 Colchicine 0.5 tab 01/12/18 Furosemide 40 mg 01/12/18 Metoprolol Succinate/Hctz [Metoprolol ER-Hctz 25-12.5 mg] 1 tab 01/12/18 Tamsulosin [Flomax] 0.4 mg 01/12/18 Allergies/Adverse Reactions: Allergies Allergy/AdvReac Type Severity Reaction Status Date / Time No Known Drug Allergies Allergy Verified 01/12/18 10:38 Anes History & Medical History - Anesthetic History Anesthesia Complications: reports: No previous complications Family history of Anesthesia Complications: Denies Family history of Malignant Hyperthermia: Denies - Medical History Cardiovascular: reports: Angina, Valve disorder Pulmonary: reports: Emphysema Gastrointestinal: reports: Diverticulitis Urinary: reports: Benign prostate hypertrophy Neuro: reports: None Musculoskeletal: reports: None Endocrine/Autoimmune: reports: None Blood Disorders: reports: None Skin: reports: None Smoking Status: Never smoker - Surgical History Cardiothoracic: Valve replacement, Fempop bypass Results - EKG Results EKG Comparison: Reviewed EKG (01/12/18 LBBB) Exam General: Alert, Oriented x3, Cooperative Dental: Dentures full Upper, Dentures full Lower Mouth Openin Fingerbreadth Neck Mobility: Normal Mallampati classification: II Thyromental Distance: greater than 6 cm Respiratory: Lungs clear, Normal breath sounds Cardiovascular: Regular rate Neurological: Normal speech Mental/Cognitive Status: Alert/Oriented X3, Normal for patient Plan Anesthesia Type: General Consent for Procedure(s) Verified and Reviewed: Yes Code Status: Attempt Resuscitation ASA classification: 3-Severe systemic disease Is this case an emergency?: Yes
[2018-10-01] MEDS ORDERED: SODIUM CHLORIDE FLUSH 0.9% 10 ML SYRINGE ONE (17:19)
[2018-10-01] MEDS ORDERED: CEFEPIME 1 GM in SODIUM CHLORIDE 0.9% MINIBAG 100 ML IV STA (17:24)
--- NOTE | 2018-10-01 17:41 | CONSULTATION NOTE ---
Referring Provider Name of Referring Provider:: Dr. Zavala Consult Date: 10/01/18 Chief Complaint - Chief Complaint Chief Complaint: abd pain History of Present Illness - Admitted From Admitted From:: ER - History Obtained From Records Reviewed: yes History obtained from: pt, records Exam Limitations: none - History of Present Illness HPI Comment/Other: 72 yo male in his usual state of health until 2.5 days ago when he noted the onset of constant steady RUQ abd pain associated with N/V of nonbloody material. Sx persisted, he was unable to tolerate solid food, but able to keep liquids down. Because of no improvement, he presented to the ER for evaluation. No fever/chills, change in bowel habits, jaundice, acholic stools, wt loss. FH gallbladder disease in his mother. No hx FFI. A colonoscopy 3 yrs ago was favorable by report. FH "stomach cancer" in multiple relatives. ER evaluation included WBC 16K, Bili 2 with ow nl lft's, nl lipase, and abd US showing thickened gb wall, + sonographic Mullen's sign, dilated common bile duct, and large solitary stone impacted in the neck of the gallbladder. CT abd/pelvis confirms same with 17 mm CBD but no evidence of stone or tumor or any other etiology for the ductal dilatation. Surgical consultation was requested. Preop medical clearance was obtained from Dr. Zavala. See his separate report. 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 - Substance History Use: Uses substance without health or social issues: NONE - POLST Patient has POLST: No Meds/Allgy - Home Medications Home Medications: Ambulatory Orders Medication Instructions Recorded Confirmed Aspirin Chewable [St Yony 81 mg 01/12/18 Aspirin] Atorvastatin Calcium 200 mg 01/12/18 Colchicine 0.5 tab 01/12/18 Furosemide 40 mg 01/12/18 Meloxicam [Mobic] 15 mg PO DAILY PRN #20 tablet 01/12/18 Metoprolol Succinate/Hctz 1 tab 01/12/18 [Metoprolol ER-Hctz 25-12.5 mg] Tamsulosin [Flomax] 0.4 mg 01/12/18 - Allergies Allergies/Adverse Reactions: Allergies Allergy/AdvReac Type Severity Reaction Status Date / Time No Known Drug Allergies Allergy Verified 01/12/18 10:38 Review of Systems - Constitutional Constitutional: denies: Fever, Chills, Poor appetite, Weight gain, Weight loss - Cardiovascular Cariovascular: denies: Irregular heart rate, Chest pain, Lightheadedness, Syncope - Respiratory Respiratory: denies: Cough, Sputum production, SOB at rest - Gastrointestinal Gastrointestinal: reports: Abdominal pain, Nausea, Vomiting, Poor appetite. denies: Constipation, Diarrhea, Change in bowel habits, Rectal bleeding, Black stools, Bloody stools, Finn blood emesis, Coffee grounds emesis, Reflux/heartb urn - Genitourinary Genitourinary: denies: Dysuria, Frequency, Urgency, Hematuria - Hematologic/Lymphatic Hematologic/Lymphatic: denies: Anemia, Blood clots, Bleeding tendencies - All Other Systems All Other Systems: reports: Reviewed and negative Exam - Vital Signs Reviewed Vital Signs: Yes Vital Signs: Vital Signs x48h Temp Pulse Resp BP Pulse Ox 10/01/18 17:00 73 16 95/60 95 10/01/18 16:30 71 16 93/65 95 10/01/18 15:30 67 16 98/71 93 10/01/18 15:00 70 16 95/65 95 10/01/18 14:59 71 95/65 95 10/01/18 14:50 68 87/43 L 87 L 10/01/18 14:30 70 16 109/43 L 100 10/01/18 14:00 72 18 98/70 92 10/01/18 13:30 76 16 92/58 L 92 10/01/18 13:20 72 16 91/57 L 92 10/01/18 12:50 42 L 18 97 10/01/18 12:43 36.5 C 42 L 18 92/66 97 - Physical Exam General Appearance: positive: Alert, Moderate distress Eyes Bilateral: positive: Normal inspection, Conjunctivae nml, No scleral icterus ENT: positive: ENT inspection nml, Pharynx nml, No signs of dehydration Neck: positive: Thyroid nml, No JVD, Trachea midline. negative: Thyromegaly, Lymphadenopathy (R), Lymphadenopathy (L) Respiratory: positive: Chest non-tender, No respiratory distress, Breath sounds nml. negative: Wheezes, Rales, Rhonchi Cardiovascular: positive: Regular rate & rhythm, No murmur, No gallop Abdomen: positive: No organomegaly, Tenderness (RUQ; localized peritoneal signs; + Mullen's sign), Guarding, Rebound. negative: Hepatomegaly, Splenomegaly, Mass Skin: positive: Color nml, No rash, Warm, Dry Extremities: positive: Non-tender, No pedal edema. negative: Calf tenderness Neurologic/Psychiatric: positive: Oriented x3 Conclusion/Plan - Diagnosis Diagnosis: 1. Acute calculous cholecystitis, with possible early sepsis secondary to same. 2. Abnormal bile duct dilatation, etiology unclear and ddx includes distal stone, tumor. 3. Cardiovascular disease, stable clinically. - Plan Plan: Laparoscopic cholecystectomy with possible cholangiograms was recommended. PAR conference was held and consent obtained. Risk of need for open procedure or transfer for postop ERCP was discussed as well. The procedure will be performed later today. Thanks, - Lab Results Lab results reviewed: Yes Miguel Bones: 10/01/18 13:15 10/01/18 13:15 - Diagnostic Imaging Results Diagnostic Imaging Results: positive: Final report reviewed, Read independently Diagnostic Imaging Results Comments: See HPI
[2018-10-01] MEDS ORDERED: BUPIVACAINE 0.5%-EPI 1:200000 PF 30 ML VIAL ONE (17:56)
[2018-10-01] MEDS ORDERED: IOTHALAMATE MEGLUMINE 50 ML VIAL ONE (17:56)
[2018-10-01] MEDS ORDERED: PHENYLEPHRINE 50 MG/5 ML VIAL IV ONE (18:00)
[2018-10-01] MEDS ORDERED: ONDANSETRON 4 MG/2 ML VIAL IVP ONE (18:00)
[2018-10-01] MEDS ORDERED: PROPOFOL 200 MG/20 ML VIAL IVP ONE (18:00)
[2018-10-01] MEDS ORDERED: ePHEDrine 50 MG/ML VIAL IVP ONE (18:00)
[2018-10-01] MEDS ORDERED: DEXAMETHASONE 4 MG/ML VIAL IVP ONE (18:00)
[2018-10-01] MEDS ORDERED: fentaNYL 100 MCG/2 ML VIAL IVP ONE (18:00)
[2018-10-01] MEDS ORDERED: MIDAZOLAM 2 MG/2 ML VIAL IVP ONE (18:00)
[2018-10-01] MEDS ORDERED: ROCURONIUM 50 MG/5 ML VIAL IVP ONE (18:00)
[2018-10-01] MEDS ORDERED: ACETAMINOPHEN 1,000 MG/100 ML 100 ML IV ONE (18:00)
[2018-10-01] MEDS ORDERED: LIDOCAINE-MPF 2% 5 ML VIAL IM ONE (18:00)
[2018-10-01] MEDS ORDERED: SODIUM CHLORIDE 0.9% 10 ML VIAL IV ONE (18:00)
[2018-10-01] MEDS ORDERED: PIPERACILLIN/TAZOBACTAM 3.375 GM in SODIUM CHLORIDE 0.9% MINIBAG 100 ML IV SCH (18:00)
[2018-10-01] MEDS ORDERED: GLYCOPYRROLATE 1 MG/5 ML VIAL IVP ONE (18:00)
[2018-10-01] MEDS ORDERED: NEOSTIGMINE 1 MG/1 ML 10 ML MDV IVP ONE (18:00)
[2018-10-01] MEDS ORDERED: BUPIVACAINE 0.5%-EPI 1:200000 PF 30 ML VIAL SUBQ ONE ×2 (18:33)
--- NOTE | 2018-10-01 19:14 | XRAY Report ---
Reason: Cholangiogram Procedure Date: 10/01/2018 Accession Number: [id number] / [id number] Procedure: [place] - OR Cholangiogram CPT Code: FULL RESULT: EXAM: INTRAOPERATIVE CHOLANGIOGRAM EXAM DATE: 10/01/2018 07:05 PM. CLINICAL HISTORY: Cholangiogram. COMPARISONS: ABDOMEN/PELVIS W/ 10/01/2018 4:06 PM. TECHNIQUE: Dr. Whitfield performed the procedure. Please see the operative notes for details. Fluoroscopy Time: 5 seconds. Number of Images: 2. FINDINGS IMPRESSION: A catheter has been placed into the cystic duct remnant following cholecystectomy. Cholangiography shows opacification of the bile ducts. Visualized extrahepatic ducts show no filling defects. Spill of contrast into the duodenum documented. RADIA
[2018-10-01] MEDS ORDERED: LACTATED RINGERS 1,000 ML IV ONE (19:44)
[2018-10-01] MEDS ORDERED: ACETAMINOPHEN 1,000 MG/100 ML 100 ML IV PRN (19:59)
[2018-10-01] MEDS ORDERED: D5.45NS W/20 MEQ KCL 1,000 ML IV SCH (20:00)
[2018-10-01] MEDS ORDERED: ONDANSETRON 4 MG/2 ML VIAL IVP PRN (20:01)
[2018-10-01] MEDS ORDERED: PANTOPRAZOLE 40 MG VIAL IV SCH (21:00)
[2018-10-01] MEDS: PIPERACILLIN/TAZOBACTAM 2.25 GM in SODIUM CHLORIDE 0.9% MINIBAG 100 ML IV SCH (22:34)
[2018-10-01] MEDS: ALBUTEROL NEB 2.5 MG/3 ML INH PRN (22:37)
[2018-10-01] MEDS ORDERED: PHENOL THROAT SPRAY 177 ML MM PRN (23:10)
[2018-10-02 05:43] LABS: BASOPHILS % (AUTO) 0.1 %; LYMPHOCYTES # (AUTO) 0.3 10^3/uL (1.5-3.5); LYMPHOCYTES % (AUTO) 3.2 %; MEAN CORPUSCULAR HEMOGLOBIN 32.5 pg (27.0-31.0); MEAN CORPUSCULAR VOLUME 95.4 fL (80.0-94.0); MONOCYTES # (AUTO) 0.7 10^3/uL (0.0-1.0); NEUTROPHILS # (AUTO) 8.9 10^3/uL (1.5-6.6); NEUTROPHILS % (AUTO) 89.7 %; PLT - PLATELET COUNT 82 10^3/uL (130-450); RED BLOOD COUNT 4.02 10^6/uL (4.70-6.10); RED CELL DISTRIBUTION WIDTH 13.8 % (12.0-15.0); WHITE BLOOD COUNT 9.9 x10^3/uL (4.8-10.8)
--- NOTE | 2018-10-02 05:54 | OPERATIVE REPORT ---
DATE OF SERVICE: 10/01/2018 Physician: Ankur Whitfield MD PREOPERATIVE DIAGNOSIS: Acute calculus cholecystitis. POSTOPERATIVE DIAGNOSIS: Acute calculus cholecystitis. PROCEDURE PERFORMED: Laparoscopic cholecystectomy with intraoperative cholangiograms. ANESTHESIA: General endotracheal by Yuri Marley CRNA. SURGEON: Ankur Whitfield MD ESTIMATED BLOOD LOSS: 50 mL COMPLICATIONS: None. DRAINS: None. FINDINGS: Laparoscopy revealed severe hemorrhagic acute calculus cholecystitis with fibrinopurulent exudate in the omentum surrounding the gallbladder. The gallbladder wall was markedly thickened. As pirated bile had a seropurulent appearance. The cystic duct was enlarged to approximately 9 mm in di ameter. Cystic duct cholangiography showed a dilated common bile duct that appeared to taper normall y and empty into the duodenum without filling defects or signs of obstruction or tumor. The visualiz ed portion of the liver, stomach, and small and large bowel, otherwise were within normal limits. INDICATIONS FOR PROCEDURE: Patient is a 72-year-old gentleman with a 2-day history of right upper qu adrant pain, nausea and vomiting associated with right upper quadrant peritoneal signs, leukocytosis and imaging studies showed a thickened gallbladder wall. A large stone impacted in the neck of the c ystic duct, a dilated common duct without obvious explanation. Positive sonographic Mullen sign. La boratory testing showed leukocytosis and elevated bilirubin. He is felt to be suffering from acute c alculous cholecystitis with possible choledocholithiasis and advised to undergo laparoscopic cholecys tectomy with intraoperative cholangiography. TECHNIQUE: After informed consent, patient was taken to the operating room and placed under general endotracheal anesthesia. Preoperative preparation included preoperative medical clearance by Dr. Toro ferrera and administration of 3.375 grams of Zosyn intravenously therapeutically. Sequential calf compr ession boots were applied. His abdomen was clipped and prepared with ChloraPrep solution and draped in the usual sterile fashion. A transverse incision was made over the superior edge of the umbilicus and carried down through the layers of the abdominal wall until the peritoneum was identified and en tered sharply, and a 10 mm Faustino cannula was inserted. Pneumoperitoneum was achieved with carbon di oxide. A 10 mm 30-degree Asad telescope was inserted. Laparoscopy was carried out with findings noted above. Three additional 5 mm ports were placed in the right upper quadrant. Instruments were passed. The omentum was peeled off of the gallbladder, which was then aspirated, approximately 60 mL of seropurulent fluid, samples of which was sent for Gram stain and culture. The gallbladder was th en able to be grasped and retracted in a cephalad the lateral direction, the cystic triangle of Calot was carefully exposed and dissected isolating the cystic duct and cystic artery and critical view of safety. The cystic artery was doubly clipped proximally and distally. The cystic duct was clipped at its junction with the gallbladder. An incision was made in the cystic duct distal to the clip. A taut cholangiogram catheter was inserted and semi-fluoro cholangiography was carried out with findin gs as noted above. The quality of the study was good. There were no apparent complications. Omnipa que and sterile saline 30 mL of a 50:50 combination for injection was used for the dye. After the st udy has been completed, the cholangiogram catheter was removed. The cystic duct was triply clipped d istally, doubly proximally and divided between the cystic artery was divided between the 2 sets of cl ips. The gallbladder was dissected from the liver bed using electrocautery for dissection and hemost asis. The gallbladder was entered at one point and contents evacuated. Eventually, the gallbladder was able to be completely removed from the liver bed, was placed in an organ retrieval bag, extracted and sent for pathologic evaluation. Hemostasis achieved with electrocautery and with a piece of Jeet gicel, which was inserted, left in place for 5 minutes and then removed. After hemostasis was assure d, the right upper quadrant was copiously irrigated with saline solution, following which the instrum ents, the cannulas were removed under direct vision. Pneumoperitoneum was allowed to escape and the incisions were closed in layers using continuous 0 Vicryl to reapproximate the midline fascia at the umbilicus, followed by 4-0 Monocryl subcuticular skin closure and Dermabond at all the port sites, 20 mL of 0.5% Marcaine with epinephrine was infiltrated into the incisions to assist in postoperative a nalgesia. Anesthesia was terminated and the patient was transferred to the recovery room in satisfac tory condition. Instrument counts were correct x2. No drains were used. TD: 10/01/2018 20:16
[2018-10-02 05:56] LABS: ALBUMIN 2.9 g/dL (3.2-5.5); BILIRUBIN,TOTAL 1.4 mg/dL (0.2-1.0); TOTAL PROTEIN 5.9 g/dL (6.7-8.2)
[2018-10-02] MEDS: PIPERACILLIN/TAZOBACTAM 2.25 GM in SODIUM CHLORIDE 0.9% MINIBAG 100 ML IV SCH ×3 (06:05→21:13)
[2018-10-02] MEDS ORDERED: BENZOCAINE/MENTHOL LOZENGE MM PRN (06:58)
[2018-10-02] MEDS ORDERED: PANTOPRAZOLE 40 MG VIAL IV SCH (07:00)
[2018-10-02] MEDS: ALBUTEROL NEB 2.5 MG/3 ML INH PRN (08:41)
[2018-10-02] MEDS ORDERED: DEXTROSE 5%-0.9% NACL 1,000 ML IV SCH (09:00)
[2018-10-02] MEDS ORDERED: ENOXAPARIN 40 MG/0.4 ML SYRINGE SUBQ SCH (09:00)
--- NOTE | 2018-10-02 10:54 | PROVIDER PROGRESS NOTE ---
Subjective - General Admit Date: 10/01/18 Procedure Date: 10/01/18 Post Op Days: 1 Procedure Performed: Lap stacy with IOC - Review of Systems Wound/Incisions: positive: Healing well, No drainage General: positive: No symptoms HEENT: positive: No symptoms Pulmonary: positive: No symptoms Cardiovascular: positive: No symptoms Gastrointestinal: positive: Abdominal pain (minimal incisional pain). negative: Nausea, Vomiting Genitourinary: positive: No symptoms - Other Other Information/Narrative: No N/V; tolerating clear liquids well; preop pain has resolved. Objective - Patient Data Reviewed Vital Signs: Yes Vital Signs: Vital Signs x48h Temp Pulse Pulse Resp BP Pulse Ox 10/02/18 08:43 68 16 10/02/18 08:08 36.6 C 66 18 116/71 95 10/02/18 05:36 36.5 C 61 18 101/57 L 97 Weight: Weight 09/30/18 10/01/18 10/02/18 23:59 23:59 23:59 Weight (kg) 104 kg Intake & Output: Intake and Output Totals x24h 09/30/18 10/01/18 10/02/18 23:59 23:59 23:59 Intake Total 1797.910 7940.315 Output Total 700 Balance 4647.240 6898.315 - Lab Results Lab Results: 10/02/18 05:25 10/02/18 05:25 Other Lab Results: Lab Results x24hrs 10/02/18 10/02/18 10/02/18 Range/Units 05:25 05:25 05:25 WBC 9.9 (4.8-10.8) x10^3/uL RBC 4.02 L (4.70-6.10) 10^6/uL Hgb 13.0 L (14.0-18.0) g/dL Hct 38.3 L (42.0-52.0) % MCV 95.4 H (80.0-94.0) fL MCH 32.5 H (27.0-31.0) pg MCHC 34.0 (32.0-36.0) g/dL RDW 13.8 (12.0-15.0) % Plt Count 82 L (130-450) 10^3/uL MPV 10.0 (7.4-11.4) fL Neut # (Auto) 8.9 H (1.5-6.6) 10^3/uL Lymph # (Auto) 0.3 L (1.5-3.5) 10^3/uL Gage # (Auto) 0.7 (0.0-1.0) 10^3/uL Eos # (Auto) 0.0 (0.0-0.7) 10^3/uL Baso # (Auto) 0.0 (0.0-0.1) 10^3/uL Absolute Nucleated RBC 0.01 x10^3/uL Band Neuts % (Manual) Abnorm Lymph % (Manual) Nucleated RBC % 0.1 /100WBC Neutrophils # (Manual) Lymphocytes # (Manual) Monocytes # (Manual) Eosinophils # (Manual) Basophils # (Manual) Differential Comment Manual Slide Review WBC Morphology (NORMAL) Platelet Estimate (NORMAL) Platelet Morphology (NORMAL) RBC Morph Micro Appear (NORMAL) PT (9.9-12.6) secs INR (0.8-1.2) Sodium 132 L (135-145) mmol/L Potassium 4.2 (3.5-5.0) mmol/L Chloride 96 L (101-111) mmol/L Carbon Dioxide 25 (21-32) mmol/L Anion Gap 11.0 (6-13) BUN 48 H (6-20) mg/dL Creatinine 2.0 H (0.6-1.2) mg/dL Estimated GFR (MDRD) 33 L (>89) Glucose 166 H (70-100) mg/dL Lactic Acid (0.5-2.2) mmol/L Calcium 8.0 L (8.5-10.3) mg/dL Magnesium 2.0 (1.7-2.8) mg/dL Total Bilirubin 1.4 H (0.2-1.0) mg/dL AST 32 (10-42) IU/L ALT 25 (10-60) IU/L Alkaline Phosphatase 94 (42-121) IU/L B-Natriuretic Peptide (5-100) pg/mL Total Protein 5.9 L (6.7-8.2) g/dL Albumin 2.9 L (3.2-5.5) g/dL Globulin 3.0 (2.1-4.2) g/dL Albumin/Globulin Ratio 1.0 (1.0-2.2) Lipase 22 (22-51) U/L Urine Color Urine Clarity (CLEAR) Urine pH (5.0-7.5) PH Ur Specific [place] (1.002-1.030) Urine Protein (NEGATIVE) mg/dL Urine Glucose (UA) (NEGATIVE) mg/dL Urine Ketones (NEGATIVE) mg/dL Urine Occult Blood (NEGATIVE) Urine Nitrite (NEGATIVE) Urine Bilirubin (NEGATIVE) Urine Urobilinogen (NORMAL) E.U./dL Ur Leukocyte Esterase (NEGATIVE) Ur Microscopic Review Urine Culture Comments 10/01/18 10/01/18 10/01/18 Range/Units 16:26 16:26 13:18 WBC (4.8-10.8) x10^3/uL RBC (4.70-6.10) 10^6/uL Hgb (14.0-18.0) g/dL Hct (42.0-52.0) % MCV (80.0-94.0) fL MCH (27.0-31.0) pg MCHC (32.0-36.0) g/dL RDW (12.0-15.0) % Plt Count (130-450) 10^3/uL MPV (7.4-11.4) fL Neut # (Auto) (1.5-6.6) 10^3/uL Lymph # (Auto) (1.5-3.5) 10^3/uL Gage # (Auto) (0.0-1.0) 10^3/uL Eos # (Auto) (0.0-0.7) 10^3/uL Baso # (Auto) (0.0-0.1) 10^3/uL Absolute Nucleated RBC x10^3/uL Band Neuts % (Manual) Abnorm Lymph % (Manual) Nucleated RBC % /100WBC Neutrophils # (Manual) Lymphocytes # (Manual) Monocytes # (Manual) Eosinophils # (Manual) Basophils # (Manual) Differential Comment Manual Slide Review WBC Morphology (NORMAL) Platelet Estimate (NORMAL) Platelet Morphology (NORMAL) RBC Morph Micro Appear (NORMAL) PT 13.8 H (9.9-12.6) secs INR 1.2 (0.8-1.2) Sodium (135-145) mmol/L Potassium (3.5-5.0) mmol/L Chloride (101-111) mmol/L Carbon Dioxide (21-32) mmol/L Anion Gap (6-13) BUN (6-20) mg/dL Creatinine (0.6-1.2) mg/dL Estimated GFR (MDRD) (>89) Glucose (70-100) mg/dL Lactic Acid (0.5-2.2) mmol/L Calcium (8.5-10.3) mg/dL Magnesium (1.7-2.8) mg/dL Total Bilirubin (0.2-1.0) mg/dL AST (10-42) IU/L ALT (10-60) IU/L Alkaline Phosphatase (42-121) IU/L B-Natriuretic Peptide 46 (5-100) pg/mL Total Protein (6.7-8.2) g/dL Albumin (3.2-5.5) g/dL Globulin (2.1-4.2) g/dL Albumin/Globulin Ratio (1.0-2.2) Lipase (22-51) U/L Urine Color YELLOW Urine Clarity CLEAR (CLEAR) Urine pH 5.5 (5.0-7.5) PH Ur Specific [place] 1.010 (1.002-1.030) Urine Protein NEGATIVE (NEGATIVE) mg/dL Urine Glucose (UA) NEGATIVE (NEGATIVE) mg/dL Urine Ketones NEGATIVE (NEGATIVE) mg/dL Urine Occult Blood NEGATIVE (NEGATIVE) Urine Nitrite NEGATIVE (NEGATIVE) Urine Bilirubin NEGATIVE (NEGATIVE) Urine Urobilinogen 0.2 (NORMAL) (NORMAL) E.U./dL Ur Leukocyte Esterase NEGATIVE (NEGATIVE) Ur Microscopic Review NOT INDICATED Urine Culture Comments NOT INDICATED 10/01/18 10/01/18 10/01/18 Range/Units 13:15 13:15 13:15 WBC (4.8-10.8) x10^3/uL RBC (4.70-6.10) 10^6/uL Hgb (14.0-18.0) g/dL Hct (42.0-52.0) % MCV (80.0-94.0) fL MCH (27.0-31.0) pg MCHC (32.0-36.0) g/dL RDW (12.0-15.0) % Plt Count (130-450) 10^3/uL MPV (7.4-11.4) fL Neut # (Auto) (1.5-6.6) 10^3/uL Lymph # (Auto) (1.5-3.5) 10^3/uL Gage # (Auto) (0.0-1.0) 10^3/uL Eos # (Auto) (0.0-0.7) 10^3/uL Baso # (Auto) (0.0-0.1) 10^3/uL Absolute Nucleated RBC x10^3/uL Band Neuts % (Manual) Abnorm Lymph % (Manual) Nucleated RBC % /100WBC Neutrophils # (Manual) Lymphocytes # (Manual) Monocytes # (Manual) Eosinophils # (Manual) Basophils # (Manual) Differential Comment Manual Slide Review WBC Morphology (NORMAL) Platelet Estimate (NORMAL) Platelet Morphology (NORMAL) RBC Morph Micro Appear (NORMAL) PT (9.9-12.6) secs INR (0.8-1.2) Sodium 133 L (135-145) mmol/L Potassium 3.9 (3.5-5.0) mmol/L Chloride 93 L (101-111) mmol/L Carbon Dioxide 26 (21-32) mmol/L Anion Gap 14.0 H (6-13) BUN 47 H (6-20) mg/dL Creatinine 2.0 H (0.6-1.2) mg/dL Estimated GFR (MDRD) 33 L (>89) Glucose 109 H (70-100) mg/dL Lactic Acid 1.2 (0.5-2.2) mmol/L Calcium 9.2 (8.5-10.3) mg/dL Magnesium (1.7-2.8) mg/dL Total Bilirubin 2.2 H (0.2-1.0) mg/dL AST 20 (10-42) IU/L ALT 19 (10-60) IU/L Alkaline Phosphatase 105 (42-121) IU/L B-Natriuretic Peptide (5-100) pg/mL Total Protein 6.8 (6.7-8.2) g/dL Albumin 3.6 (3.2-5.5) g/dL Globulin 3.2 (2.1-4.2) g/dL Albumin/Globulin Ratio 1.1 (1.0-2.2) Lipase 22 23 (22-51) U/L Urine Color Urine Clarity (CLEAR) Urine pH (5.0-7.5) PH Ur Specific [place] (1.002-1.030) Urine Protein (NEGATIVE) mg/dL Urine Glucose (UA) (NEGATIVE) mg/dL Urine Ketones (NEGATIVE) mg/dL Urine Occult Blood (NEGATIVE) Urine Nitrite (NEGATIVE) Urine Bilirubin (NEGATIVE) Urine Urobilinogen (NORMAL) E.U./dL Ur Leukocyte Esterase (NEGATIVE) Ur Microscopic Review Urine Culture Comments 10/01/18 Range/Units 13:15 WBC 16.7 H (4.8-10.8) x10^3/uL RBC 4.53 L (4.70-6.10) 10^6/uL Hgb 14.4 (14.0-18.0) g/dL Hct 42.5 (42.0-52.0) % MCV 93.7 (80.0-94.0) fL MCH 31.8 H (27.0-31.0) pg MCHC 33.9 (32.0-36.0) g/dL RDW 13.9 (12.0-15.0) % Plt Count 102 L (130-450) 10^3/uL MPV 10.6 (7.4-11.4) fL Neut # (Auto) 14.2 H (1.5-6.6) 10^3/uL Lymph # (Auto) 0.8 L (1.5-3.5) 10^3/uL Gage # (Auto) 1.6 H (0.0-1.0) 10^3/uL Eos # (Auto) 0.0 (0.0-0.7) 10^3/uL Baso # (Auto) 0.1 (0.0-0.1) 10^3/uL Absolute Nucleated RBC 0.00 x10^3/uL Band Neuts % (Manual) Not Reportable Abnorm Lymph % (Manual) Not Reportable Nucleated RBC % 0.0 /100WBC Neutrophils # (Manual) Not Reportable Lymphocytes # (Manual) Not Reportable Monocytes # (Manual) Not Reportable Eosinophils # (Manual) Not Reportable Basophils # (Manual) Not Reportable Differential Comment MANUAL=AUTO DIFF Manual Slide Review Indicated WBC Morphology NORMAL APPEARANCE (NORMAL) Platelet Estimate DECREASED (<130,000) (NORMAL) Platelet Morphology 1+ LARGE PLATELETS (NORMAL) RBC Morph Micro Appear NORMAL APPEARANCE (NORMAL) PT (9.9-12.6) secs INR (0.8-1.2) Sodium (135-145) mmol/L Potassium (3.5-5.0) mmol/L Chloride (101-111) mmol/L Carbon Dioxide (21-32) mmol/L Anion Gap (6-13) BUN (6-20) mg/dL Creatinine (0.6-1.2) mg/dL Estimated GFR (MDRD) (>89) Glucose (70-100) mg/dL Lactic Acid (0.5-2.2) mmol/L Calcium (8.5-10.3) mg/dL Magnesium (1.7-2.8) mg/dL Total Bilirubin (0.2-1.0) mg/dL AST (10-42) IU/L ALT (10-60) IU/L Alkaline Phosphatase (42-121) IU/L B-Natriuretic Peptide (5-100) pg/mL Total Protein (6.7-8.2) g/dL Albumin (3.2-5.5) g/dL Globulin (2.1-4.2) g/dL Albumin/Globulin Ratio (1.0-2.2) Lipase (22-51) U/L Urine Color Urine Clarity (CLEAR) Urine pH (5.0-7.5) PH Ur Specific [place] (1.002-1.030) Urine Protein (NEGATIVE) mg/dL Urine Glucose (UA) (NEGATIVE) mg/dL Urine Ketones (NEGATIVE) mg/dL Urine Occult Blood (NEGATIVE) Urine Nitrite (NEGATIVE) Urine Bilirubin (NEGATIVE) Urine Urobilinogen (NORMAL) E.U./dL Ur Leukocyte Esterase (NEGATIVE) Ur Microscopic Review Urine Culture Comments gallbladder fluid gm stain: 3+GNR, 1+ GPC; no WBCs - Current Medications Current Medications: Current Medications Generic Name Dose Route Start Last Admin Trade Name Freq PRN Reason Stop Dose Admin Albuterol 2.5 mg 10/01/18 22:11 10/02/18 08:41 INH 2.5 mg RTQ4H PRN Administration Wheezing Piperacillin Sod/Tazobactam 100 mls @ 100 mls/hr 10/01/18 22:00 10/02/18 07:15 Sod 2.25 gm/ Sodium Chloride IV Infused Q8H MARTINEZ Infusion Phenol/Menthol 2 sprays 10/01/18 23:10 10/02/18 00:56 Chloraseptic MM 2 sprays Q2HR PRN Administration Throat Pain Throat Lozenges 1 lozenge 10/02/18 06:58 10/02/18 07:55 Cepacol MM 1 lozenge Q2HR PRN Administration Throat pain - Physical Exam Wound/Incisions: positive: Healing well, No drainage General Appearance: positive: No acute distress, Alert Eyes Bilateral: positive: No scleral icterus ENT: positive: ENT inspection nml Neck: positive: No JVD Respiratory: positive: Chest non-tender, No respiratory distress, Breath sounds nml Cardiovascular: positive: Regular rate & rhythm, No murmur, No gallop Abdomen: positive: Tenderness (minimal incisional), Other (incisions healing well) Skin: positive: Color nml, No rash, Warm, Dry. negative: Cyanosis Extremities: positive: No pedal edema. negative: Calf tenderness Neurologic/Psychiatric: positive: Oriented x3 ABX Reporting Has patient been on IV antibiotics over the past 48 hours?: No Impression/Plan - Problem List Problem List: PO Day 1 s/p lap stacy for severe acute calculous cholecystitis with associated mild sepsis; clinically improving; Rec: advance diet, OOB, transition to oral meds, d/c IVF; consider home tomorrow if continues to do well; ow as per Dr. Zavala.
[2018-10-02] MEDS: PANTOPRAZOLE 40 MG TABLET PO SCH (11:52)
[2018-10-02] MEDS: oxyCODONE 5 MG TABLET PO PRN ×2 (11:53→20:35)
--- NOTE | 2018-10-02 11:56 | MISCELLANEOUS PROVIDER NOTE ---
Miscellaneous Provider Note - - Note: HPI Comment/Other: This is a pleasant 72-year-old male with multiple cardiovascular comorbidities to include an aortic valve repair x2 at the [facility] (bioprosthetic valve), hypertension, hyperlipidemia, non-O2 dependent COPD- emphysema, diverticulitis, BPH, previous femoropopliteal bypass who presents to the ER with 1 or 2-day history of worsening right upper quadrant abdominal pain with associated anorexia exacerbated by eating. Patient's last meal was this a .m. at 9, a little bit a yogurt but can barely eat due to the pain. Had nonbilious non-bloody emesis x1. In the ED patient had a white count of 16.7, platelets of 102, sodium 133, creatinine of 2.0, ultrasound of the abdomen showed gallstone neck of gallbladder with thickened edematous and irregular wall tenderness with positive Mullen sign consistent with an acute calculus cholecystitis. Medical consultation was requested by Dr. Ankur Whitfield for the reason of medical management for patient's cardiovascular comorbidities. Subjective: Patient with no acute overnight events, feels some incisional pain, no fevers, no chest pain, no maculopapular rashes, GI or symptoms Objective: VSS: Currently afebrile, Blood pressure 116/71, heart rate 68 bpm, RR 16, 95% O2 saturation on 4 L nasal cannula General Appearance: positive: No acute distress, Alert Eyes Bilateral: positive: No scleral icterus ENT: positive: ENT inspection nml Neck: positive: No JVD Respiratory: positive: Chest non-tender, No respiratory distress, Breath sounds nml Cardiovascular: positive: Regular rate & rhythm, No murmur, No gallop Abdomen: positive: Tenderness (minimal incisional), Other (incisions healing well) Skin: positive: Color nml, No rash, Warm, Dry. negative: Cyanosis Extremities: positive: No pedal edema. negative: Calf tenderness Neurologic/Psychiatric: positive: Oriented x3 Labs: Reviewed Imaging studies: Reviewed Assessment/plan: 1. Acute cholecystitis Patient is status post laparoscopic cholecystectomy postop day #1 doing well. Continue with advancing diet to regular, IV fluids to discontinue, pain control, bowel rest, continue with IV antibiotics to de-escalate to Augmentin for 5 more days. 2. Sepsis secondary to #1 Blood cultures pending, no elevation in lactic acid, no hypotensive events, IV Zosyn to be de-escalated to Augmentin for 5 more days as an outpatient. 3. Acute renal insufficiency superimposed on chronic kidney disease Patient with underlying chronic kidney disease, creatinine today is 2.0, would continue with IV fluids as prior unknown baseline. Patient was previously on metoprolol, hydrochlorothiazide and Lasix which may have precipitated prerenal azotemia. Avoid nephrotoxic agents. Patient with a history of gout previously on colchicine. 4. Thrombocytopenia Likely secondary to sepsis and infection. Will discontinue Lovenox. We will continue to monitor. Currently off of aspirin as this would likely exacerbate thrombocytopenia. 5. Preoperative medical/cardiac assessmentPatient had a revised cardiac risk index of class II [id number], 6.0% 30-day risk of DE, cardiac arrest and/or . In addition patient had a group to perioperative risk of 0.7% JUSTIN, risk of DE, cardiac arrest, intraoperatively or up to 30-day postoperative. 6. Hyponatremia Likely secondary to GI losses. We will continue with IV fluids, Correct underlying electrolyte disturbances. 7. Hyperlipidemia Resume statin. 8. Hypertension Was previously on metoprolol ER/hydrochlorothiazide along with Lasix. Will hold for now. 9. History of gout Was on colchicine will be placed on hold for now 10. Non-O2 dependent COPD/emphysema Due to evidence of atelectasis seen on chest x-ray Postoperative incentive spirometry with pulmonary toileting essential. Patient currently on supplemental oxygenation and would need a chest x-ray to evaluate for postoperative atelectasis. 11. Advance care education planning Patient has elected on full CODE STATUS with full treatment, trajectory of illness medical conditions as well as plan of care discussed with goals of care and trajectory of illness postoperatively, risks and benefits discussed. Patient would like aggressive medical management at this point. Would initiate DVT/GI prophylaxis: Protonix, DVT prophylaxis with SCD boots only. CODE STATUS: Full code
[2018-10-02] MEDS ORDERED: IPRATROPIUM/ALBUTEROL 3 ML NEB INH PRN (12:06)
[2018-10-02] MEDS ORDERED: SODIUM CHLORIDE FLUSH 0.9% 10 ML SYRINGE ONE ×3 (13:40→20:58)
[2018-10-02 23:42] VITALS: BP 120/71
[2018-10-03 05:43] LABS: HGB - HEMOGLOBIN 12.5 g/dL (14.0-18.0); LYMPHOCYTES # (AUTO) 0.5 10^3/uL (1.5-3.5); LYMPHOCYTES % (AUTO) 5.9 %; MEAN CORPUSCULAR HEMOGLOBIN 32.4 pg (27.0-31.0); MEAN CORPUSCULAR VOLUME 95.1 fL (80.0-94.0); MEAN PLATELET VOLUME 10.4 fL (7.4-11.4); MONOCYTES # (AUTO) 0.7 10^3/uL (0.0-1.0); MONOCYTES % (AUTO) 8.2 %; NEUTROPHILS # (AUTO) 6.9 10^3/uL (1.5-6.6); NEUTROPHILS % (AUTO) 85.9 %; PLT - PLATELET COUNT 100 10^3/uL (130-450); RED BLOOD COUNT 3.85 10^6/uL (4.70-6.10); RED CELL DISTRIBUTION WIDTH 13.7 % (12.0-15.0)
[2018-10-03 05:49] LABS: ALBUMIN 2.9 g/dL (3.2-5.5); ALBUMIN/GLOBULIN RATIO 0.9 (1.0-2.2); BILIRUBIN,TOTAL 0.6 mg/dL (0.2-1.0); CALCIUM 8.2 mg/dL (8.5-10.3); CREATININE 1.4 mg/dL (0.6-1.2); TOTAL PROTEIN 6.1 g/dL (6.7-8.2)
[2018-10-03] MEDS ORDERED: SODIUM CHLORIDE FLUSH 0.9% 10 ML SYRINGE ONE ×2 (05:49→06:54)
[2018-10-03] MEDS: PIPERACILLIN/TAZOBACTAM 2.25 GM in SODIUM CHLORIDE 0.9% MINIBAG 100 ML IV SCH (05:50)
[2018-10-03] MEDS: PANTOPRAZOLE 40 MG TABLET PO SCH (05:56)
--- NOTE | 2018-10-03 07:54 | PROVIDER PROGRESS NOTE ---
Subjective - General Admit Date: 10/01/18 Procedure Date: 10/01/18 Post Op Days: 2 Procedure Performed: Lap stacy with IOC - Review of Systems Wound/Incisions: positive: Healing well, No drainage General: positive: No symptoms HEENT: positive: No symptoms Pulmonary: positive: No symptoms Cardiovascular: positive: No symptoms Gastrointestinal: positive: Abdominal pain (minimal incisional pain). negative: Nausea, Vomiting Genitourinary: positive: No symptoms Objective - Patient Data Reviewed Vital Signs: Yes Weight: Weight 10/01/18 10/02/18 10/03/18 23:59 23:59 23:59 Weight (kg) 104 kg Intake & Output: Intake and Output Totals x24h 10/01/18 10/02/18 10/03/18 23:59 23:59 23:59 Intake Total 9542.253 4043.315 100 Output Total 1225 825 Balance 7522.963 9360.315 -725 - Lab Results Lab Results: 10/03/18 05:15 10/03/18 05:15 Other Lab Results: Lab Results x24hrs 10/03/18 10/03/18 10/02/18 Range/Units 05:15 05:15 05:25 WBC 8.0 (4.8-10.8) x10^3/uL RBC 3.85 L (4.70-6.10) 10^6/uL Hgb 12.5 L (14.0-18.0) g/dL Hct 36.6 L (42.0-52.0) % MCV 95.1 H (80.0-94.0) fL MCH 32.4 H (27.0-31.0) pg MCHC 34.0 (32.0-36.0) g/dL RDW 13.7 (12.0-15.0) % Plt Count 100 L (130-450) 10^3/uL MPV 10.4 (7.4-11.4) fL Neut # (Auto) 6.9 H (1.5-6.6) 10^3/uL Lymph # (Auto) 0.5 L (1.5-3.5) 10^3/uL Bee # (Auto) 0.7 (0.0-1.0) 10^3/uL Eos # (Auto) 0.0 (0.0-0.7) 10^3/uL Baso # (Auto) 0.0 (0.0-0.1) 10^3/uL Absolute Nucleated RBC 0.00 x10^3/uL Nucleated RBC % 0.1 /100WBC Sodium 136 (135-145) mmol/L Potassium 3.8 (3.5-5.0) mmol/L Chloride 101 (101-111) mmol/L Carbon Dioxide 26 (21-32) mmol/L Anion Gap 9.0 (6-13) BUN 37 H (6-20) mg/dL Creatinine 1.4 H (0.6-1.2) mg/dL Estimated GFR (MDRD) 50 L (>89) Glucose 118 H (70-100) mg/dL Calcium 8.2 L (8.5-10.3) mg/dL Magnesium 2.0 (1.7-2.8) mg/dL Total Bilirubin 0.6 (0.2-1.0) mg/dL AST 28 (10-42) IU/L ALT 26 (10-60) IU/L Alkaline Phosphatase 111 (42-121) IU/L Total Protein 6.1 L (6.7-8.2) g/dL Albumin 2.9 L (3.2-5.5) g/dL Globulin 3.2 (2.1-4.2) g/dL Albumin/Globulin Ratio 0.9 L (1.0-2.2) - Current Medications Current Medications: Current Medications Generic Name Dose Route Start Last Admin Trade Name Freq PRN Reason Stop Dose Admin Albuterol 2.5 mg 10/01/18 22:11 10/02/18 08:41 INH 2.5 mg RTQ4H PRN Administration Wheezing Albuterol/Ipratropium 3 ml 10/02/18 12:06 10/02/18 20:37 Duoneb INH 3 ml Q4HR PRN Administration Wheezing Piperacillin Sod/Tazobactam 100 mls @ 100 mls/hr 10/01/18 22:00 10/03/18 0 6:58 Sod 2.25 gm/ Sodium Chloride IV Infused Q8H MARTINEZ Infusion Oxycodone HCl 5 mg 10/02/18 10:34 10/02/18 20:35 Roxicodone PO 5 mg Q6HR PRN Administration PAIN Pantoprazole Sodium 40 mg 10/02/18 11:00 10/03/18 05:56 Protonix PO 40 mg QDAC MARTINEZ Administration Phenol/Menthol 2 sprays 10/01/18 23:10 10/02/18 00:56 Chloraseptic MM 2 sprays Q2HR PRN Administration Throat Pain Throat Lozenges 1 lozenge 10/02/18 06:58 10/02/18 07:55 Cepacol MM 1 lozenge Q2HR PRN Administration Throat pain - Physical Exam Wound/Incisions: positive: Healing well, No drainage General Appearance: positive: No acute distress, Alert Eyes Bilateral: positive: No scleral icterus ENT: positive: No signs of dehydration Neck: positive: No JVD Respiratory: positive: Chest non-tender, No respiratory distress, Breath sounds nml Cardiovascular: positive: Regular rate & rhythm, No gallop, Systolic murmur (3/6 RONNELL; ? louder than preop). negative: Decreased pulse(s) Abdomen: positive: Non-tender, Other (incisions healing well) Extremities: positive: Non-tender, Nml appearance, No pedal edema. negative: Calf tenderness Neurologic/Psychiatric: positive: Oriented x3 ABX Reporting Has patient been on IV antibiotics over the past 48 hours?: Yes Impression/Plan - Problem List Problem List: PO Day 2 s/p lap stacy for acute cholecystitis; doing well clinically. Only concern I have is ? louder systolic murmur in pt with bioprosthetic valve. Rec: Dr. Zavala to evaluate cardiac status; ow OK for d/c home on 3 days of Augmentin (or longer if indicated per Dr. Zavala); usual surgical precautions (no lifting more than 10 lbs for one week; may shower, regular diet, laxative as needed; non narcotic analgesics), f/u my office next week.
--- NOTE | 2018-10-03 08:21 | Discharge Plan ---
Discharge Plan Disposition: 01 Home, Self Care Condition: Good Prescriptions: Oxycodone HCl/Acetaminophen [Percocet 7.5-325 mg Tablet] 1 each PO Q6HR PRN #40 tablet PRN Reason: Pain Amox/Clav 875/125 [Augmentin 875/125] 1 tab PO BID 5 Days #10 tablet Lactobacillus Rhamnosus GG [Culturelle] 1 cap PO DAILY #20 capsule Metoprolol Succinate 12.5 mg PO BID #30 tab.er.24h Diet: Low Sodium Activity Restrictions: Activity as Tolerated Shower Restrictions: No Driving Restrictions: No Instruction Topics: ED Gallbladder Infec Conf, Sepsis, Kidney Disease Chronic Dc, ED Insufficiency Renal Additional Instructions or Follow Up instructions: You were admitted for a severe infection involving your gallbladder which showed a stone in the neck of the gallbladder that may have precipitated your signs and symptoms. This process is known as sepsis for which a fever along with abnormalities in your labs and vital signs were noted. Your gallbladder was subsequently removed as this was showing signs of possible rupture per surgeon's observation. In the setting of your bioprosthetic valve which was noted to have a systolic murmur 2 sets of blood cultures were drawn which have been negative after 1 day. You are placed on empiric IV antibiotics in order to prevent further infection or precipitation of complications of sepsis which would involve multiorgan failure. You were not found to have more multiorgan failure. Your sodium was low upon admission and this was corrected with IV fluids. In addition you presented with some renal insufficiency however you do have underlying chronic kidney disease which may or may not be related to your multiple cardiovascular comorbidities and underlying gout with benign prostatic hyperplasia. You will resume your home dosing of medications with readjustments to metoprolol 12.5 mg twice a day, due to risk of low blood pressures and further renal impairment. He will continue with Augmentin which is an antibiotic that will prevent further complications from your Gallbladder infection. You will take this antibiotic for an additional 5 days. If blood cultures become positive you will be called back or given an extension of your existing Augmentin to take for a total of 2 weeks depending on the identification of the microorganism on blood cultures. This puts you at a high risk for endocarditis, which is a bacterial infection of the inner lining of your heart which may include your heart valves. You will return to see your primary surgeon Dr. Ankur Whitfield as scheduled or within 1 or 2 weeks. You will return to see your PCP in 1 or 2 weeks time. No Smoking: If you smoke, Please STOP! Call for help. Follow-up with: Grecia Mcguire MD [Primary Care Provider] - 2 Weeks (Return to your PCP in 1 or 2 weeks) Ankur Whitfield MD [Provider Admit Priv/Credential] - 1 Week (Follow-up with Dr. Ankur Whitfield as scheduled)
--- NOTE | 2018-10-03 08:41 | DISCHARGE SUMMARY ---
"Discharge Summary Admit Date: 10/01/18 Discharge Date: 10/03/18 Discharging Provider: Dr. Zavala Primary Care Provider: Grecia Mcguire Code Status: Attempt Resuscitation Condition at Discharge: Good Discharge Disposition: 01 Home, Self Care - DIAGNOSES Admission Diagnoses: 1. Acute cholecystitis 2. Sepsis secondary to #1 3. Acute renal insufficiency superimposed on chronic kidney disease 4. Thrombocytopenia 5. Preoperative medical/cardiac assessment 6. Hyponatremia 7. Hyperlipidemia 8. Hypertension 9. History of gout 10. Non-O2 dependent COPD/emphysema Discharge Diagnoses with Status of Each Condition: 1. Acute cholecystitis Status post laparoscopic cholecystectomy, resolved 2. Sepsis secondary to #1, Resolved 3. Acute renal insufficiency superimposed on chronic kidney disease, Stage II, Improved 4. Thrombocytopenia, Improved 5. Hyponatremia, Resolved 6. Hyperlipidemia, Stable 7. Hypertension, Stable 8. History of gout, Stable 9. Non-O2 dependent COPD/emphysema, Stable - HPI History of Present Illness: This is a pleasant 72-year-old male with multiple cardiovascular comorbidities to include an aortic valve repair x2 at the [facility] (biopr osthetic valve), hypertension, hyperlipidemia, non-O2 dependent COPD-emphysema, diverticulitis, BPH, previous femoropopliteal bypass who presents to the ER with 1 or 2-day history of worsening right upper quadrant abdominal pain with associated anorexia exacerbated by eating. Patient's last meal was this a.m. at 9, a little bit a yogurt but can barely eat due to the pain. Had nonbilious non-bloody emesis x1. In the ED patient had a white count of 16.7, platelets of 102, sodium 133, creatinine of 2.0, ultrasound of the abdomen showed gallstone neck of gallbladder with thickened edematous and irregular wall tenderness with positive Mullen sign consistent with an acute calculus cholecystitis. Medical consultation was requested by Dr. Ankur Whitfield for the reason of medical management for patient's cardiovascular comorbidities. - CONSULTS | PROCEDURES Consultations: Dr. Ankur Whitfield Procedures: Laparoscopic cholecystectomy - HOSPITAL COURSE Hospital Course: Mr. Miguel Jaramillo is a pleasant 72-year-old with a past medical history significant for multiple cardiovascular comorbidities to include a bioprosthetic aortic valve with repair x2 at the [facility], hypertension, hyperlipidemia, non-O2 dependent COPD emphysema, BPH, prior revascularization procedures with a femoral popliteal bypass presents with an acute cholecystitis and early sepsis. Patient's white count was elevated along with electrolyte disturbances and acute renal insufficiency. Initial ultrasound of the abdomen showed gallstone neck of gallbladder with thickening and edematous and irregular wall tenderness with positive Mullen sign consistent with acute cholecystitis. CT abdomen pelvis confirmed results and patient underwent laparoscopic cholecystectomy for which empiric IV Zosyn was given throughout the interim and throughout hospitalization. Subsequently de-escalated to Augmentin to resume for 5 more days. Patient's blood cultures x2 were negative growth to date after 1 day. Creatinine was at 2.0 and dropped to his baseline of 1.4 with a history of chronic kidney disease stage II underlying. Patient had no postoperative complications with hemodilution noted to his H/H, No acute blood loss anemia was noted. Patient did have thrombocytopenia which decreased to 82K secondary to sepsis and the administration of Lovenox. Platelets then went back up to 100 K prior to discharge after discontinuation of Lovenox. Patient did not require oxygen upon discharge. Patient had a 2/6 systolic murmur from his bioprosthetic valve but without any signs or symptoms of endocarditis or minor/major Crowder's criteria. Patient was initially hypotensive attributable to his sepsis and or usage of metoprolol. Nephrotoxic agents and home medications were held while hospitalized. Patient will resume home medications and readjustment of metoprolol to 12.5 mg p.o. twice daily along with resuming his Uloric and colchicine for gout prophylaxis. Patient is to follow-up with Dr. Ankur Whitfield as scheduled post hospital discharge. To follow-up with PCP in about 1 to 2 weeks time. If patient's blood cultures are positive patient will need an extended period of antibiotics to approximately 2 weeks pending identification of organism. Currently blood cultures are negative growth to date. - ALLERGIES Allergies/Adverse Reactions: Allergies Allergy/AdvReac Type Severity Reaction Status Date / Time No Known Drug Allergies Allergy Verified 01/12/18 10:38 - MEDICATIONS Home Medications: Ambulatory Orders Medication Instructions Recorded Confirmed Aspirin Chewable [St Yony 81 mg PO DAILY 01/12/18 10/02/18 Aspirin] Tamsulosin [Flomax] 0.4 mg PO DAILY 01/12/18 10/02/18 Albuterol Sulf [Ventolin Hfa 2 puffs INH Q4H PRN 10/02/18 10/02/18 Inhaler] Atorvastatin [Lipitor] 20 mg PO DAILY 10/02/18 10/02/18 Colchicine 0.3 mg PO DAILY 10/02/18 10/02/18 Febuxostat [Uloric] 80 mg PO DAILY 10/02/18 10/02/18 Amox/Clav 875/125 [Augmentin 1 tab PO BID 5 Days #10 tablet 10/03/18 875/125] Lactobacillus Rhamnosus GG 1 cap PO DAILY #20 capsule 10/03/18 [Culturelle] Metoprolol Succinate 12.5 mg PO BID #30 tab.er.24h 10/03/18 Oxycodone HCl/Acetaminophen 1 each PO Q6HR PRN #40 tablet 10/03/18 [Percocet 7.5-325 mg Tablet] - PHYSICAL EXAM AT DISCHARGE General Appearance: positive: No acute distress, Alert Eyes Bilateral: positive: Normal inspection, PERRL, EOMI ENT: positive: ENT inspection nml, Pharynx nml, No signs of dehydration Neck: positive: Nml inspection, Thyroid nml, No JVD, Trachea midline. negative: Thyromegaly Respiratory: positive: Chest non-tender, No respiratory distress, Breath sounds nml Cardiovascular: positive: Regular rate & rhythm, No gallop, Systolic murmur (2/6 systolic crescendo decrescendo type murmur heard at the 2nd-3rd right intercostal sternal border). negative: Irregularly irregular, Gallop/S4 Peripheral Pulses: positive: 2+ Abdomen: positive: Non-tender, No organomegaly, Nml bowel sounds, No distention, Tenderness (Mild tenderness at the incisional site with no surrounding erythematous lesions) Back: positive: Nml inspection Skin: positive: Color nml, No rash, Warm Neurologic/Psychiatric: positive: Oriented x3, CN's nml (2-12) - LABS Result Diagrams: 10/03/18 05:15 10/03/18 05:15 - DIAGNOSTIC IMAGING Diagnostic Imaging Results: Final report reviewed - FOLLOW UP Follow Up: Follow-up with PCP in 1 or 2 weeks. Follow-up with Dr. Ankur Whitfield in 1 or 2 weeks. - TIME SPENT Time Spent in Discharge (Minutes): 35"
[2018-10-03] MEDS ORDERED: ATORVASTATIN 10 MG TABLET PO SCH (09:00)
[2018-10-03] MEDS ORDERED: AMOX/CLAV 875 MG/125 MG TABLET PO SCH (09:00)
[2018-10-03] MEDS ORDERED: TAMSULOSIN 0.4 MG CAPSULE PO SCH (09:15)
[2018-10-03] MEDS ORDERED: LACTOBACILLUS RHAMNOSUS GG CAPSULE PO SCH (11:00)
== END 2018-10-03 09:55 | disposition home or self-care (01) | DRG 854 ==
LOC: ED 12:39 → UNDOADMIN 16:35 → MS2 16:35 → SDS 17:30 → MS2 17:30 → ED 17:36 → MS2 20:48 → UNDOADMIN 20:48 → UNDODISIN 10-03 09:55
PROVIDERS: ADMIT Surgery; ATTEND Surgery
PROC: 0FT44ZZ Resection of Gallbladder, Percutaneous Endoscopic Approach (ICD-10-PCS; principal; 2018-10-01 17:13)
DX: A41.9 Sepsis, unspecified organism (principal); K80.00 Calculus of gallbladder with acute cholecystitis without obstruction; E87.1 Hypo-osmolality and hyponatremia; Z95.2 Presence of prosthetic heart valve; I13.0 Hypertensive heart and chronic kidney disease with heart failure and stage 1 through stage 4 chronic kidney disease, or unspecified chronic kidney disease; N18.2 Chronic kidney disease, stage 2 (mild); I95.2 Hypotension due to drugs; T44.7X5A Adverse effect of beta-adrenoreceptor antagonists, initial encounter; D69.59 Other secondary thrombocytopenia; T45.515A Adverse effect of anticoagulants, initial encounter; Y92.230 Patient room in hospital as the place of occurrence of the external cause; R01.1 Cardiac murmur, unspecified; I50.9 Heart failure, unspecified; E78.5 Hyperlipidemia, unspecified; M10.9 Gout, unspecified; J43.9 Emphysema, unspecified; N40.0 Benign prostatic hyperplasia without lower urinary tract symptoms; I20.9 Angina pectoris, unspecified; Z95.3 Presence of xenogenic heart valve; Z87.19 Personal history of other diseases of the digestive system; Z79.899 Other long term (current) drug therapy; Z79.82 Long term (current) use of aspirin; Z83.79 Family history of other diseases of the digestive system; Z80.0 Family history of malignant neoplasm of digestive organs; Z86.79 Personal history of other diseases of the circulatory system
CPT/HCPCS: 36415; 71045; 74177; 74300; 76705; 80053; 81003; 83605; 83690; 83735; 83880; 85025; 85610; 87040; 87070; 87077; 87181; 87205; 93005; 94640; 96361; 96365; 96375; 99284; A9270; J0131; J1170; J1650; J7120; Q9961; Q9967; 81001; 87086; 99285

== ENCOUNTER 2019-07-31 09:46 | Outpatient (CLI) | payer MEDICARE, MEDICAID ==
--- NOTE | 2019-07-31 10:23 | CT Report ---
Reason: FLANK PX, GROIN PX Procedure Date: 07/31/2019 Accession Number: [id number] / [id number] Procedure: CT - Abdomen/Pelvis WO CPT Code: Final Report FULL RESULT: EXAM: CT ABDOMEN AND PELVIS (CT KUB) EXAM DATE: 07/31/2019 10:06 AM. CLINICAL HISTORY: Left flank and groin pain. COMPARISONS: ABDOMEN/PELVIS W/ 10/01/2018 4:06 PM. TECHNIQUE: Routine axial helical CT imaging was performed through the abdomen and pelvis without IV contrast. Reconstructions: Coronal and sagittal. In accordance with CT protocol optimization, one or more of the following dose reduction techniques were utilized for this exam: automated exposure control, adjustment of mA and/or KV based on patient size, or use of iterative reconstructive technique. FINDINGS: Lung Bases: Unremarkable. Right Kidney/Ureter: No stones, hydronephrosis, or hydroureter. No perinephric fat stranding. Left Kidney/Ureter: No stones, hydronephrosis, or hydroureter. No perinephric fat stranding. Other Solid Organs: Noncontrast images of the solid organs are grossly unremarkable. Gallbladder/Bile Ducts: Prior cholecystectomy. Peritoneal Cavity: No free fluid. Colonic diverticula without evidence of diverticulitis. There is a fat density structure projecting from the anterior margin of the descending colon, image 3/83, with a small focus of peripheral calcification and a soft tissue density periphery. The findings are suggestive of epiploic appendagitis. Pelvic Organs: No bladder stones or wall thickening. Noncontrast images of the visualized pelvic organs are unremarkable. Vasculature: Unremarkable. Other: There is a degenerative dextroscoliosis of the lower lumbar spine with retrolisthesis at L2-L3, L3-L4 and L4-L5 causing mild to moderate canal narrowing. IMPRESSION: 1. Probable left colonic epiploic appendagitis. 2. No visible renal, ureteric or bladder calculi. The call report notification system was initiated by Dr. Arsenio Patel at 10:19 AM on 07/31/2019. The above call report findings were discussed with Grecia Mcguire by Dr. Arsenio Patel at 10:21 AM on 07/31/2019.
== END 2019-07-31 09:47 | disposition home or self-care (01) ==
LOC: DI 09:46
PROVIDERS: ATTEND Internal Medicine
DX: R10.9 Unspecified abdominal pain (principal); R10.30 Lower abdominal pain, unspecified
CPT/HCPCS: 74176

== ENCOUNTER 2019-12-22 15:30 | Emergency (ER) | payer MEDICARE, MEDICAID ==
--- NOTE | 2019-12-22 15:48 | ED Physician Documentation ---
PD HPI DYSPNEA - Stated complaint Stated Complaint: SOA - History obtained from History obtained from: Patient - Additional information Additional information: 74-year-old gentleman had what sounds like an aortic valve replacement about 20 years ago and then subsequently 3 years ago sounds like he had a TAVR. Over the last 6 months he has been progressively short of breath especially in the last week, it is worse with exertion. He denies pedal edema but does have what he feels like his abdominal edema. He had a near syncopal episode today and felt rubbery. No chest pains. Review of Systems Ten Systems: 10 systems reviewed and negative Constitutional: denies: Fever, Chills Eyes: denies: Loss of vision, Decreased vision Ears: denies: Loss of hearing, Ear pain Nose: denies: Rhinorrhea / runny nose, Congestion Cardiac: denies: Pedal edema, Calf pain PD PAST MEDICAL HISTORY - Past Medical History Cardiovascular: Congestive heart failure, High cholesterol, Angina, Valve disorder Respiratory: Emphysema Neuro: None Endocrine/Autoimmune: None GI: Diverticulitis : Benign prostate hypertrophy HEENT: None Psych: None Musculoskeletal: None Derm: None - Past Surgical History Past Surgical History: Yes 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 Cardiovascular: Valve replacement - Present Medications Home Medications: Ambulatory Orders Medication Instructions Recorded Confirmed Aspirin Chewable [St Yony 81 mg PO DAILY 01/12/18 10/02/18 Aspirin] Tamsulosin [Flomax] 0.4 mg PO DAILY 01/12/18 10/02/18 Albuterol Sulf [Ventolin Hfa 2 puffs INH Q4H PRN 10/02/18 10/02/18 Inhaler] Atorvastatin [Lipitor] 20 mg PO DAILY 10/02/18 10/02/18 Colchicine 0.3 mg PO DAILY 10/02/18 10/02/18 Febuxostat [Uloric] 80 mg PO DAILY 10/02/18 10/02/18 Amox/Clav 875/125 [Augmentin 1 tab PO BID 5 Days #10 tablet 10/03/18 875/125] Lactobacillus Rhamnosus GG 1 cap PO DAILY #20 capsule 10/03/18 [Culturelle] Metoprolol Succinate 12.5 mg PO BID #30 tab.er.24h 10/03/18 Oxycodone HCl/Acetaminophen 1 each PO Q6HR PRN #40 tablet 10/03/18 [Percocet 7.5-325 mg Tablet] - Allergies Allergies/Adverse Reactions: Allergies Allergy/AdvReac Type Severity Reaction Status Date / Time No Known Drug Allergies Allergy Verified 12/22/19 15:52 - Living Situation Living Situation: reports: With spouse/s.o. - Social History Does the pt smoke?: No Smoking Status: Never smoker Does the pt drink ETOH?: No Does the pt have substance abuse?: No - Immunizations Immunizations are current?: Yes - POLST Patient has POLST: No PD ED PE NORMAL - Vitals Vital signs reviewed: Yes - General General: Alert and oriented X 3, No acute distress - HEENT HEENT: PERRL, EOMI - Neck Neck: Supple, no meningeal sign, No bony TTP - Cardiac Cardiac: Other (Irregularly irregular, slightly decreased heart sounds, subtle systolic murmur) - Respiratory Respiratory: No respiratory distress, Clear bilaterally - Abdomen Abdomen: Soft, Non tender - Derm Derm: Normal color, Warm and dry - Extremities Extremities: No edema, No calf tenderness / cord - Neuro Neuro: Alert and oriented X 3, Normal speech Results - Vitals Vitals: Vital Signs - 24 hr 12/22/19 12/22/19 15:45 17:02 Temperature 36.9 C Heart Rate 57 L 62 Respiratory 20 19 Rate Blood Pressure 138/95 H 110/75 O2 Saturation 96 94 Oxygen O2 Source Room air - EKG (time done) 1549 Rate: Rate (enter#) (76) Rhythm: Atrial fibrillation Intervals: LBBB QRS: Normal Computer interpretation: Agree with computer - Labs Labs: Laboratory Tests 12/22/19 12/22/19 12/22/19 16:00 16:00 16:00 WBC 6.2 RBC 4.56 L Hgb 15.0 Hct 43.3 MCV 95.0 H MCH 32.9 H MCHC 34.6 RDW 13.2 Plt Count 124 L MPV 11.8 H Neut # (Auto) 4.2 Lymph # (Auto) 1.1 L [place] # (Auto) 0.7 Eos # (Auto) 0.2 Baso # (Auto) 0.0 Absolute Nucleated RBC 0.00 Nucleated RBC % 0.0 PT 12.8 H INR 1.1 Sodium 137 Potassium 3.9 Chloride 99 L Carbon Dioxide 29 Anion Gap 9.0 BUN 30 H Creatinine 1.8 H Estimated GFR (MDRD) 37 L Glucose 95 Calcium 9.1 Total Bilirubin 1.3 H AST 26 ALT 25 Alkaline Phosphatase 147 H Troponin I High Sens B-Natriuretic Peptide Total Protein 6.6 L Albumin 3.9 Globulin 2.7 Albumin/Globulin Ratio 1.4 Lipase 28 12/22/19 12/22/19 16:00 16:00 WBC RBC Hgb Hct MCV MCH MCHC RDW Plt Count MPV Neut # (Auto) Lymph # (Auto) [place] # (Auto) Eos # (Auto) Baso # (Auto) Absolute Nucleated RBC Nucleated RBC % PT INR Sodium Potassium Chloride Carbon Dioxide Anion Gap BUN Creatinine Estimated GFR (MDRD) Glucose Calcium Total Bilirubin AST ALT Alkaline Phosphatase Troponin I High Sens 9.7 B-Natriuretic Peptide 208 H Total Protein Albumin Globulin Albumin/Globulin Ratio Lipase - Rads (name of study) 1v chest Radiology: EMP read contemporaneously (nad) PD MEDICAL DECISION MAKING - ED course ED course: This is a gentleman who has had extensive valvular issues in the past, now presents with shortness of breath. Examination not consistent with CHF. Found to have A. fib. This is likely causative. BNP only modestly elevated. No sign of ACS. Chest x-ray clear. Echo not available today, but probably would benefit from CASEY as opposed to TTE anyway for potential for cardioversion. Departure - Departure Disposition: 01 Home, Self Care Clinical Impression: Dyspnea Qualifiers: Dyspnea type: dyspnea on exertion Qualified Code(s): R06.00 - Dyspnea, unspecified Atrial fibrillation Qualifiers: Atrial fibrillation type: unspecified Qualified Code(s): I48.91 - Unspecified atrial fibrillation Condition: Good Record reviewed to determine appropriate education?: Yes Instructions: Atrial Fibrillation Dc Comments: Call your sample selector tomorrow, let him know that you have new onset atrial fibrillation of unclear chronicity. He may want to see you for a transesophageal echocardiogram and consideration for cardioversion and or anticoagulation. Return if worse.
[2019-12-22 16:21] LABS: BASOPHILS % (AUTO) 0.5 %; EOSINOPHILS # (AUTO) 0.2 10^3/uL (0.0-0.7); EOSINOPHILS % (AUTO) 2.9 %; LYMPHOCYTES # (AUTO) 1.1 10^3/uL (1.5-3.5); LYMPHOCYTES % (AUTO) 17.3 %; MEAN CORPUSCULAR HEMOGLOBIN 32.9 pg (27.0-31.0); MEAN CORPUSCULAR HGB CONC 34.6 g/dL (32.0-36.0); MEAN PLATELET VOLUME 11.8 fL (7.4-11.4); MONOCYTES # (AUTO) 0.7 10^3/uL (0.0-1.0); MONOCYTES % (AUTO) 11.1 %; NEUTROPHILS # (AUTO) 4.2 10^3/uL (1.5-6.6); NEUTROPHILS % (AUTO) 67.9 %; PLT - PLATELET COUNT 124 10^3/uL (130-450); RED BLOOD COUNT 4.56 10^6/uL (4.70-6.10); RED CELL DISTRIBUTION WIDTH 13.2 % (12.0-15.0); WHITE BLOOD COUNT 6.2 x10^3/uL (4.8-10.8)
[2019-12-22 16:24] LABS: INR 1.1 (0.8-1.2); PT - PROTHROMBIN TIME 12.8 secs (9.9-12.6)
--- NOTE | 2019-12-22 16:24 | XRAY Report ---
PROCEDURE: Chest 1 View X-Ray INDICATIONS: Dyspnea TECHNIQUE: One view of the chest was acquired. COMPARISON: 10/01/2018 FINDINGS: Surgical changes and devices: Median sternotomy changes are again noted. Lungs and pleura: No pleural effusions or pneumothorax. Lungs are clear. Mediastinum: Mediastinal contours appear normal. Heart size is normal. Bones and chest wall: No suspicious bony lesions. Overlying soft tissues appear unremarkable. IMPRESSION: No acute cardiopulmonary process demonstrated radiographically. Reviewed by: Juliano Rodriguez MD on 12/22/2019 4:23 PM PDT Approved by: Juliano Rodriguez MD on 12/22/2019 4:23 PM PDT Station ID: [id number]
[2019-12-22 16:29] LABS: ALBUMIN 3.9 g/dL (3.2-5.5); ALBUMIN/GLOBULIN RATIO 1.4 (1.0-2.2); BILIRUBIN,TOTAL 1.3 mg/dL (0.2-1.0); CALCIUM 9.1 mg/dL (8.5-10.3); CREATININE 1.8 mg/dL (0.6-1.2); TOTAL PROTEIN 6.6 g/dL (6.7-8.2)
[2019-12-22 17:04] VITALS: BP 110/75
== END 2019-12-22 17:38 | disposition home or self-care (01) ==
LOC: ED 15:30
DX: I48.91 Unspecified atrial fibrillation (principal); I44.7 Left bundle-branch block, unspecified; J43.9 Emphysema, unspecified; Z95.2 Presence of prosthetic heart valve; Z79.82 Long term (current) use of aspirin
CPT/HCPCS: 36415; 71045; 80053; 83690; 83880; 84484; 85025; 85610; 93005; 99284; 99285

== ENCOUNTER 2020-03-12 15:44 | Outpatient (CLI) | payer MEDICARE, MEDICAID ==
--- NOTE | 2020-03-12 16:26 | XRAY Report ---
PROCEDURE: Chest 2 View X-Ray INDICATIONS: COUGH TECHNIQUE: 2 view(s) of the chest. COMPARISON: None. FINDINGS: Surgical changes and devices: Median sternotomy wires are stable. TAVR device stable. Lungs and pleura: No pleural effusions or pneumothorax. Lungs are clear. Mediastinum: Mediastinal contours are normal. Heart size is normal. Bones and chest wall: No suspicious bony abnormalities. Soft tissues appear unremarkable. IMPRESSION: No acute cardiopulmonary disease process. Reviewed by: Jes Medel MD, PhD on 03/12/2020 4:25 PM PST Approved by: Jes Medel MD, PhD on 03/12/2020 4:25 PM PST Station ID: [id number]
== END 2020-03-12 15:45 | disposition home or self-care (01) ==
LOC: DI 15:44
PROVIDERS: ATTEND Internal Medicine
DX: R05 Cough (principal)
CPT/HCPCS: 71046

== ENCOUNTER 2021-04-06 08:00 | Outpatient (CLI) | payer MEDICARE, MEDICAID ==
[2021-04-06 19:54] LABS: BASOPHILS % (AUTO) 0.5 %; EOSINOPHILS # (AUTO) 0.2 10^3/uL (0.0-0.7); EOSINOPHILS % (AUTO) 2.7 %; HCT - HEMATOCRIT 40.2 % (42.0-52.0); HGB - HEMOGLOBIN 13.5 g/dL (14.0-18.0); LYMPHOCYTES # (AUTO) 1.1 10^3/uL (1.5-3.5); LYMPHOCYTES % (AUTO) 12.2 %; MEAN CORPUSCULAR HEMOGLOBIN 31.8 pg (27.0-31.0); MEAN CORPUSCULAR HGB CONC 33.6 g/dL (32.0-36.0); MEAN CORPUSCULAR VOLUME 94.6 fL (80.0-94.0); MEAN PLATELET VOLUME 12.2 fL (7.4-11.4); MONOCYTES # (AUTO) 0.8 10^3/uL (0.0-1.0); MONOCYTES % (AUTO) 9.2 %; NEUTROPHILS # (AUTO) 6.6 10^3/uL (1.5-6.6); NEUTROPHILS % (AUTO) 74.9 %; PLT - PLATELET COUNT 161 10^3/uL (130-450); RED BLOOD COUNT 4.25 10^6/uL (4.70-6.10); RED CELL DISTRIBUTION WIDTH 14.3 % (12.0-15.0); WHITE BLOOD COUNT 8.8 x10^3/uL (4.8-10.8)
[2021-04-06 20:07] LABS: CALCIUM 8.9 mg/dL (8.5-10.3); CREATININE 1.5 mg/dL (0.6-1.2); POTASSIUM 4.2 mmol/L (3.5-5.0)
--- NOTE | 2021-04-07 08:12 | XRAY Report ---
PROCEDURE: Chest 2 View X-Ray INDICATIONS: COPD TECHNIQUE: 2 view(s) of the chest. COMPARISON: CXR 03/12/2020, 12/22/2019. FINDINGS: Surgical changes and devices: Post median sternotomy. Aortic TAVR stent. Lungs and pleura: No pleural effusions or pneumothorax. Minimal bibasilar hazy and streaky opacity s imilar to the prior exam. Mediastinum: Mediastinal contours are normal. Heart size is normal. Bones and chest wall: No suspicious bony abnormalities. Soft tissues appear unremarkable. IMPRESSION: Minimal basilar hazy and streaky opacity. Suspect atelectasis or scarring. Reviewed by: Freddy Rivera MD on 04/07/2021 8:10 AM PST Approved by: Freddy Rivera MD on 04/07/2021 8:10 AM PST Station ID: [id number]
== END 2021-04-06 23:59 | disposition home or self-care (01) ==
LOC: DI.S 08:00
PROVIDERS: ATTEND Emergency Medicine
DX: J44.9 Chronic obstructive pulmonary disease, unspecified (principal); I50.9 Heart failure, unspecified; R91.8 Other nonspecific abnormal finding of lung field
CPT/HCPCS: 36415; 80048; 83880; 85025

== ENCOUNTER 2021-04-25 08:00 | Outpatient (CLI) | payer MEDICARE, MEDICAID | END 2021-04-25 23:59 | LOC: LAB.S 08:00 | PROVIDERS: ATTEND Physician Assistant Medical | DX: J18.9 Pneumonia, unspecified organism (principal); Z20.822 Contact with and (suspected) exposure to COVID-19 ==

== ENCOUNTER 2021-08-05 08:00 | Outpatient (CLI) | payer MEDICARE, MEDICAID ==
--- NOTE | 2021-08-05 09:06 | XRAY Report ---
PROCEDURE: Chest 2 View X-Ray INDICATIONS: COPD, ACUTE EXACERBATION TECHNIQUE: 2 view(s) of the chest. COMPARISON: April 06, 2021 FINDINGS: SUPPORT DEVICES: Sternotomy wires with evidence of CABG and valve prosthesis. LUNGS/PLEURA: Coarsened interstitial markers. No focal consolidation, pleural effusion or space-occup ivory pneumothorax. MEDIASTINUM: The cardiac silhouette is within normal limits. Tortuous aorta. BONES/SOFT TISSUES: No acute abnormality. IMPRESSION: 1.No acute cardiopulmonary abnormality. Reviewed by: Arron Estevez MD on 08/05/2021 9:05 AM PDT Approved by: Arron Estevez MD on 08/05/2021 9:05 AM PDT Station ID: [id number]
== END 2021-08-05 23:59 | disposition home or self-care (01) ==
LOC: DI.S 08:00
PROVIDERS: ATTEND Emergency Medicine
DX: J44.1 Chronic obstructive pulmonary disease with (acute) exacerbation (principal)

== ENCOUNTER 2021-08-07 08:00 | Outpatient (CLI) | payer MEDICARE, MEDICAID | END 2021-08-07 08:01 | disposition home or self-care (01) | LOC: LAB.S 08:00 | PROVIDERS: ATTEND Physician Assistant Medical | DX: U07.1 COVID-19 (principal) ==

== ENCOUNTER 2022-05-03 17:47 | Outpatient (CLI) | payer MEDICAID, MEDICARE ==
[2022-05-03 21:24] LABS: URIC ACID 3.3 mg/dL (2.6-7.2)
[2022-05-03 22:23] LABS: CRP - C-REACTIVE PROTEIN < 1.0 mg/dL (0-1.0)
--- NOTE | 2022-05-04 08:57 | XRAY Report ---
PROCEDURE: Ankle 3 View RT INDICATIONS: RIGHT ANKLE PAIN TECHNIQUE: 3 views of the ankle were acquired. COMPARISON: None FINDINGS: Bones: Possible avulsion fracture in the medial malleolus of uncertain chronicity. No dislocations. Ankle mortise is slightly widened medially. No suspicious bony lesions. Moderate degenerative join t disease at the tibiotalar joint, and mild degenerative joint disease at the talonavicular joint and subtalar joint. Calcaneal spurring. Soft tissues: Trace tibiotalar joint effusion. Achilles tendon appears normal. Vascular calcificati ons consistent with atherosclerosis. Soft tissue swelling over the medial malleolus. IMPRESSION: 1. Possible avulsion fracture in the medial malleolus. 2. Uneven ankle mortise with mild widening medially. There is medial soft tissue swelling. The findin gs are suggestive of ligamentous injury. If clinically indicated, MRI may be helpful. 3. Moderate degenerative joint disease. Reviewed by: Analilia Leger MD on 05/04/2022 8:55 AM PST Approved by: Analilia Leger MD on 05/04/2022 8:55 AM PST Station ID: [id number]
== END 2022-05-03 17:48 | disposition home or self-care (01) ==
LOC: DI.S 17:47
PROVIDERS: ATTEND Nurse Practitioner
DX: M19.071 Primary osteoarthritis, right ankle and foot (principal)
CPT/HCPCS: 36415; 84550; 85651; 86140

== ENCOUNTER 2022-05-27 09:00 | Outpatient (CLI) | payer MEDICARE, MEDICAID ==
--- NOTE | 2022-05-27 11:13 | XRAY Report ---
PROCEDURE: Ankle 3 View RT INDICATIONS: RIGHT ANKLE PAIN TECHNIQUE: 3 views of the ankle were acquired. COMPARISON: 05/03/2022 FINDINGS: Bones: Small calcific density at the tip of the medial malleolus is again noted unchanged. No associa millicent soft tissue swelling. Ankle mortise is similar to the prior exam. Small calcaneal spur Soft tissues: No tibiotalar joint effusion. Achilles tendon appears normal. Diffuse atheroscleroti c vascular calcification IMPRESSION: Stable right ankle radiographic findings compared to the prior exam. Consider MRI Reviewed by: Remington Guido MD on 05/27/2022 10:12 AM [facility] Approved by: Remington Guido MD on 05/27/2022 10:12 AM [facility] Station ID: [id number]
== END 2022-05-27 09:01 | disposition home or self-care (01) ==
LOC: DI.S 09:00
PROVIDERS: ATTEND Nurse Practitioner
DX: M25.571 Pain in right ankle and joints of right foot (principal)

== ENCOUNTER 2022-06-10 09:23 | Outpatient (CLI) | payer MEDICAID, MEDICARE ==
--- NOTE | 2022-06-12 12:40 | MRI Report ---
PROCEDURE: ANKLE WO - RT INDICATIONS: RIGHT ANKLE PAIN TECHNIQUE: Noncontrast sagittal T1 spin echo and T2 fast spin echo with fat saturation, axial proton density fas t spin echo and T2 fast spin echo with fat saturation, coronal T1 spin echo and T2 fast spin echo wit h fat saturation through the ankle/hindfoot. COMPARISON: Ankle radiograph dated 05/27/2022 and 05/03/2022. FINDINGS: Image quality: Excellent. Bones and joints: Moderate midfoot and hindfoot joint osteoarthritic changes are seen with significan t joint space narrowing, subchondral sclerosis and cyst formation and small marginal osteophyte forma tion more notably involving navicular cuneiform joints, tibiotalar joint and subtalar joint. Osteocho ndral injuries are seen involving lateral weightbearing portion of talar dome with surrounding edema. Similar osteochondral injuries also noted involving anterior and lateral aspect of distal tibial tammie fond. Small osteochondral injuries also noted involving posterior inferior aspect of talus adjacent t o subtalar joint measures 5 mm in size. There is small to moderate amount of tibiotalar and subtalar joint effusion, no gross loose bodies. No acute fracture or dislocation. Medial structures: The posterior tibialis tendon is thickened with intrasubstance T2 hyperintense si gnal at the level of mid to distal talus and talonavicular joint. The flexor digitorum longus, and fl exor hallucis longus tendons are intact. Small amount of fluid distending flexor tendon sheath is se en. The posterior tibial neurovascular bundle appears normal within the tarsal tunnel, without extrin sic mass effect. The deltoid ligament and spring ligament are thickened. Lateral structures: The anterior talofibular, calcaneofibular, and posterior talofibular ligaments a ppear thickened with intrasubstance T2 hyperintense signal.. More superiorly, the anterior and poste rior tibiofibular ligaments also appears thickened with intrasubstance T2 hyperintense signal. The t ibiofibular syndesmosis is normal in width at 2 mm or less. There is thickening of peroneus longus te ndon with intrasubstance T2 hyperintense signal at the level of distal calcaneus and calcaneocuboid j oint. The peroneus brevis tendon is intact. Adjacent bony peroneal tubercle and retrotrochlear promin ence are normal in size. The sinus tarsi demonstrates normal fatty signal, without edema, fibrosis, or cyst formation. Visualized sinus tarsi components (cervical ligament, interosseous talocalcaneal ligament, roots of the inferior extensor retinaculum) appear normal. Anterior structures: The tibialis anterior, extensor hallucis longus, and extensor digitorum longus tendons appear intact. Posterior and plantar structures: Achilles tendon is intact. Medial and lateral bands of the planta r fascia are mildly thickened with adjacent edema. No abductor digiti quinti muscle atrophy to sugges t Singh neuropathy. IMPRESSION: 1. Moderate midfoot and hindfoot joint osteoarthritis as described above. No acute fracture or disloc ation. Small to moderate amount of tibiotalar and subtalar joint effusion, no gross loose bodies. Sug gestion of osteochondral injuries involving lateral weightbearing portion of talar dome and anterior and lateral portion of distal tibial plafond. 2. Tendinosis and moderate grade intrasubstance partial thickness tear involving posterior tibialis t endon as above. Low-grade tenosynovitis is also seen involving flexor tendons. 3. Tendinosis and low-grade partial-thickness tear involving peroneus longus tendon at the level of d istal calcaneus and calcaneocuboid joint. 4. Low-grade ankle ligament sprain. Low-grade sprain/intrasubstance partial thickness tear involving lateral ankle ligaments. No full-thickness ligament rupture. 5. Mildly thickened plantar fascia at its calcaneal insertion concerning for low-grade plantar fascii tis. Achilles tendon is intact. Reviewed by: Janes Alan MD on 06/12/2022 12:39 PM PST Approved by: Janes Alan MD on 06/12/2022 12:39 PM PST Station ID: [id number]
== END 2022-06-10 09:24 | disposition home or self-care (01) ==
LOC: DI 09:23
PROVIDERS: ATTEND Registered Nurse
DX: M19.071 Primary osteoarthritis, right ankle and foot (principal); S96.821A Laceration of other specified muscles and tendons at ankle and foot level, right foot, initial encounter; S93.401A Sprain of unspecified ligament of right ankle, initial encounter

== ENCOUNTER 2022-07-07 19:27 | Emergency (ER) | payer MEDICARE, MEDICAID ==
[2022-07-07 20:39] LABS: BASOPHILS % (AUTO) 0.3 %; EOSINOPHILS # (AUTO) 0.1 10^3/uL (0.0-0.7); EOSINOPHILS % (AUTO) 0.9 %; HCT - HEMATOCRIT 41.2 % (42.0-52.0); HGB - HEMOGLOBIN 13.8 g/dL (14.0-18.0); LYMPHOCYTES # (AUTO) 1.2 10^3/uL (1.5-3.5); LYMPHOCYTES % (AUTO) 11.6 %; MEAN CORPUSCULAR HEMOGLOBIN 32.1 pg (27.0-31.0); MEAN CORPUSCULAR HGB CONC 33.5 g/dL (32.0-36.0); MEAN CORPUSCULAR VOLUME 95.8 fL (80.0-94.0); MONOCYTES # (AUTO) 0.8 10^3/uL (0.0-1.0); MONOCYTES % (AUTO) 7.6 %; NEUTROPHILS # (AUTO) 8.4 10^3/uL (1.5-6.6); NEUTROPHILS % (AUTO) 78.4 %; PLT - PLATELET COUNT 157 10^3/uL (130-450); RED CELL DISTRIBUTION WIDTH 14.6 % (12.0-15.0); WHITE BLOOD COUNT 10.7 x10^3/uL (4.8-10.8)
[2022-07-07 20:51] LABS: ALBUMIN 3.6 g/dL (3.2-5.5); ALBUMIN/GLOBULIN RATIO 1.3 (1.0-2.2); BILIRUBIN,TOTAL 0.9 mg/dL (0.2-1.0); CALCIUM 8.4 mg/dL (8.5-10.3); CREATININE 1.6 mg/dL (0.6-1.2); POTASSIUM 3.9 mmol/L (3.5-5.0); TOTAL PROTEIN 6.4 g/dL (6.7-8.2)
--- NOTE | 2022-07-07 20:53 | XRAY Report ---
PROCEDURE: Chest 1 View X-Ray INDICATIONS: Shortness of breath TECHNIQUE: One view of the chest was acquired. COMPARISON: Similar plain film study 08/05/2021. FINDINGS: Surgical changes and devices: Sternotomy wires, presumed prior CABG.. Lungs and pleura: No pleural effusions or pneumothorax. Lungs are mildly edematous. Mediastinum: Mediastinal contours appear normal. Heart size is globally mildly enlarged. Bones and chest wall: No suspicious bony lesions. Overlying soft tissues appear unremarkable. IMPRESSION: Prior CABG, global mild cardiomegaly and generalized mild pulmonary edema. This is the presumed etiol ogy of current shortness of breath. Reviewed by: Daniel Marx MD on 07/07/2022 8:51 PM PDT Approved by: Daniel Marx MD on 07/07/2022 8:51 PM PDT Station ID: [id number]
[2022-07-07] MEDS ORDERED: FUROSEMIDE 40 MG/4 ML VIAL IVP STA (21:34)
[2022-07-07] MEDS ORDERED: IPRATROPIUM/ALBUTEROL 3 ML NEB INH STA (23:59)
[2022-07-08 00:52] VITALS: BP 109/61
--- NOTE | 2022-07-08 00:53 | ED Physician Documentation ---
PD HPI DYSPNEA - Stated complaint Stated Complaint: SOA,COUGH,CHEST TIGHT - Chief complaint Chief Complaint: Resp - History obtained from History obtained from: Patient - Additional information Additional information: Patient is a 76-year-old male presenting for evaluation of a productive cough and feeling short of breath for the last 1 month. He reports going to the walk- in clinic last week and was given a course of prednisone which she states did not seem like it changed his symptoms. He does feel like he has been retaining water recently and feel like his weight has gone up. He is on Lasix 40 mg daily and has been compliant. Patient states that his cough is productive of white sputum. He denies known fever. Denies chest pain, abdominal pain, vomiting.He does have a history of atrial fibrillation and is compliant with Eliquis. Patient reports prior history of valve repair. Denies known stents in his heart. Review of Systems Constitutional: denies: Fever Cardiac: denies: Chest pain / pressure Respiratory: reports: Dyspnea, Cough GI: denies: Abdominal Pain, Vomiting : denies: Dysuria Musculoskeletal: reports: Extremity swelling Neurologic: denies: Headache PD PAST MEDICAL HISTORY - Past Medical History Cardiovascular: Congestive heart failure, High cholesterol, Angina, Valve disorder Respiratory: Emphysema Neuro: None Endocrine/Autoimmune: None GI: Diverticulitis : Benign prostate hypertrophy HEENT: None Psych: None Musculoskeletal: None Derm: None - Past Surgical History Past Surgical History: Yes 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 Cardiovascular: Valve replacement - Present Medications Home Medications: Ambulatory Orders Medication Instructions Recorded Confirmed Aspirin Chewable [St Yony 81 mg PO DAILY 01/12/18 10/02/18 Aspirin] Tamsulosin [Flomax] 0.4 mg PO DAILY 01/12/18 10/02/18 Albuterol Sulf [Ventolin Hfa 2 puffs INH Q4H PRN 10/02/18 10/02/18 Inhaler] Atorvastatin [Lipitor] 20 mg PO DAILY 10/02/18 10/02/18 Colchicine 0.3 mg PO DAILY 10/02/18 10/02/18 Febuxostat [Uloric] 80 mg PO DAILY 10/02/18 10/02/18 Amox/Clav 875/125 [Augmentin 1 tab PO BID 5 Days #10 tablet 10/03/18 875/125 Tab] Lactobacillus Rhamnosus GG 1 cap PO DAILY #20 capsule 10/03/18 [Culturelle] Metoprolol Succinate 12.5 mg PO BID #30 tab.er.24h 10/03/18 Oxycodone HCl/Acetaminophen 1 each PO Q6HR PRN #40 tablet 10/03/18 [Percocet 7.5-325 mg Tablet] - Allergies Allergies/Adverse Reactions: Allergies Allergy/AdvReac Type Severity Reaction Status Date / Time No Known Drug Allergies Allergy Verified 07/07/22 19:45 - Social History Does the pt smoke?: No Smoking Status: Never smoker Does the pt drink ETOH?: No Does the pt have substance abuse?: No - Immunizations Immunizations are current?: Yes - POLST Patient has POLST: No PD ED PE NORMAL - General General: Alert and oriented X 3, No acute distress, Well developed/nourished - HEENT HEENT: Atraumatic - Neck Neck: Supple, no meningeal sign - Cardiac Cardiac: Other (Irregularly irregular) - Respiratory Respiratory: No respiratory distress, Other (Diminished at the bases, rales) - Abdomen Abdomen: Soft, Non tender - Extremities Extremities: No calf tenderness / cord, Other (Bilateral lower extremity edema) - Neuro Neuro: Normal speech Results - Vitals Vitals: Vital Signs - 24 hr 07/07/22 07/07/22 07/07/22 19:39 21:34 22:33 Temperature 36.3 C L Heart Rate 60 79 85 Respiratory 21 21 22 Rate Blood Pressure 145/98 H 103/61 119/72 O2 Saturation 97 98 98 07/08/22 07/08/22 07/08/22 00:16 00:35 00:48 Temperature Heart Rate 69 89 Respiratory 23 24 24 Rate Blood Pressure 115/83 H 109/61 O2 Saturation 97 96 Oxygen O2 Source Room air - EKG (time done) 2003 EKG releavant findings:: EKG personally interpreted by author of this note. Relevant findings are: Rate 68, atrial fibrillation, no STEMI, PVCs Rate: Rate (enter#) (68) Rhythm: Atrial fibrillation Intervals: Other (IVCD) Ischemia: No: ST elevation c/w ischemia Other comments: Other comments (PVCs) - Labs Labs: Laboratory Tests 07/07/22 07/07/22 07/07/22 20:20 20:20 20:20 WBC 10.7 RBC 4.30 L Hgb 13.8 L Hct 41.2 L MCV 95.8 H MCH 32.1 H MCHC 33.5 RDW 14.6 Plt Count 157 MPV 11.0 Neut # (Auto) 8.4 H Lymph # (Auto) 1.2 L [place] # (Auto) 0.8 Eos # (Auto) 0.1 Baso # (Auto) 0.0 Absolute Nucleated RBC 0.00 Nucleated RBC % 0.0 Sodium 137 Potassium 3.9 Chloride 102 Carbon Dioxide 29 Anion Gap 6.0 BUN 38 H Creatinine 1.6 H Estimated GFR (MDRD) 42 L Glucose 94 Calcium 8.4 L Total Bilirubin 0.9 AST 44 H ALT 56 Alkaline Phosphatase 139 H Troponin I High Sens 32.9 H* B-Natriuretic Peptide Total Protein 6.4 L Albumin 3.6 Globulin 2.8 Albumin/Globulin Ratio 1.3 07/07/22 07/07/22 20:20 22:54 WBC RBC Hgb Hct MCV MCH MCHC RDW Plt Count MPV Neut # (Auto) Lymph # (Auto) [place] # (Auto) Eos # (Auto) Baso # (Auto) Absolute Nucleated RBC Nucleated RBC % Sodium Potassium Chloride Carbon Dioxide Anion Gap BUN Creatinine Estimated GFR (MDRD) Glucose Calcium Total Bilirubin AST ALT Alkaline Phosphatase Troponin I High Sens 38.4 H* B-Natriuretic Peptide 102 H Total Protein Albumin Globulin Albumin/Globulin Ratio PD Medical Decision Making - ED course Complexity details: reviewed results, re-evaluated patient, d/w patient ED course: Is a 76-year-old male presenting for evaluation of shortness of air for the past 1 month and productive cough of white sputum. He is afebrile here with stable vital signs. He does have signs of fluid overload on exam with lower extremity edema and rales.Patient also reports having an increase in his weight. EKG demonstrates atrial fibrillation. I do not see signs of acute ischemia. Given age and risk factors a high-sensitivity troponin was obtained and is a slightly elevated at 32. His chest x-ray which I also reviewed demonstrates cardiomegaly and mild pulmonary edema. I suspect that his symptoms are likely related to fluid overload. I did obtain a second troponin and it has only gone up slightly over the course of several hours. I do not think this suggests an NSTEMI. He also does not have episodes of chest pain to suggest unstable angina.I suspect that this is related to demand from his congestive heart failure. I have given an additional dose of Lasix 40 mg. Patient additionally requested a breathing treatment and is feeling better.We will plan to increase his Lasix for the next 2 days and advised patient on need for follow-up with PCP as well as cardiology. He is also advised on concerning symptoms to return for. Departure - Departure Disposition: 01 Home, Self Care Clinical Impression: Congestive heart failure, Chest pain, Dyspnea, Atrial fibrillation Condition: Stable Instructions: ED CHF General, ED Chest Pain Atypical Unkn Cause, ED Dyspnea Shortness of Breath Comments: On your exam today it appears that you have a buildup of fluid in your lungs. We have given you an extra dose of furosemide (lasix) To help remove this fluid. I would continue with an extra dose of furosemide 40 mg on Sunday and Sunday. You can take your normal dose in the morning and then a second dose in the afternoon time.I would also reach out to your primary care doctor or cardio logist on Sunday for close follow-up. If at anytime you have worsening symptoms such as chest pain or feel more short of breath please consider return to the emergency department. Discharge Date/Time: 07/08/22 01:08
== END 2022-07-08 01:08 | disposition home or self-care (01) ==
LOC: ED 19:27
DX: I50.9 Heart failure, unspecified (principal); R07.9 Chest pain, unspecified; R06.09 Other forms of dyspnea; I48.91 Unspecified atrial fibrillation; Z79.01 Long term (current) use of anticoagulants
CPT/HCPCS: 36415; 80053; 83880; 84484; 85025; 93005; 94640; 94664; 96374; 99284

== ENCOUNTER 2022-08-23 07:00 | Outpatient (CLI) | payer MEDICARE, MEDICAID ==
--- NOTE | 2022-08-23 09:51 | XRAY Report ---
PROCEDURE: Chest 2 View X-Ray INDICATIONS: COPD, ACUTE EXACERBATION. TECHNIQUE: 2 views of the chest were acquired. COMPARISON: 07/07/2022 FINDINGS: Surgical changes and devices: Median sternotomy wires are intact. Aortic valve prosthesis noted. Lungs and pleura: No pleural effusions or pneumothorax. Lungs are clear. Mediastinum: Mediastinal contours appear normal. Heart size is enlarged. Bones and chest wall: No suspicious bony lesions. Overlying soft tissues appear unremarkable. IMPRESSION: Cardiomegaly. No acute cardiopulmonary abnormalities. No focal airspace disease. Reviewed by: Luis Armenta MD on 08/23/2022 9:49 AM PDT Approved by: Luis Armenta MD on 08/23/2022 9:49 AM PDT Station ID: [id number]
== END 2022-08-23 23:59 | disposition home or self-care (01) ==
LOC: DI.S 07:00
PROVIDERS: ATTEND Physician Assistant Medical
DX: J44.1 Chronic obstructive pulmonary disease with (acute) exacerbation (principal); I51.7 Cardiomegaly

== ENCOUNTER 2023-10-11 07:00 | Outpatient (CLI) | payer MEDICARE, MEDICAID ==
--- NOTE | 2023-10-11 15:41 | XRAY Report ---
PROCEDURE: Chest 2V INDICATIONS: PRODUCTIVE COUGH TECHNIQUE: 2 views of the chest were obtained. COMPARISON: None. FINDINGS: Surgical changes and devices: Midline sternal wires present. Aortic valve replacement. Atherosclerot ic vascular calcification noted in the aortic arch. Lungs and pleura: No pleural effusions or pneumothorax. Lungs are clear. Mediastinum: Mediastinal contours appear normal. Heart size is normal. Bones and chest wall: No suspicious bony lesions. Overlying soft tissues appear unremarkable. IMPRESSION: No acute cardiopulmonary findings Reviewed by: Remington Guido MD on 10/11/2023 2:40 PM AKDT Approved by: Remington Guido MD on 10/11/2023 2:40 PM AKDT Station ID: [id number]
== END 2023-10-11 23:59 | disposition home or self-care (01) ==
LOC: DI.S 07:00
PROVIDERS: ATTEND Registered Nurse
DX: R05.8 Other specified cough (principal)

== ENCOUNTER 2023-10-18 11:00 | Outpatient (CLI) | payer MEDICARE, MEDICAID ==
[2023-10-18 14:33] LABS: HCT - HEMATOCRIT 42.3 % (42.0-52.0); HGB - HEMOGLOBIN 13.9 g/dL (14.0-18.0); MEAN CORPUSCULAR HEMOGLOBIN 32.2 pg (27.0-31.0); MEAN CORPUSCULAR HGB CONC 32.9 g/dL (32.0-36.0); MEAN CORPUSCULAR VOLUME 97.9 fL (80.0-94.0); MEAN PLATELET VOLUME 11.5 fL (7.4-11.4); RED BLOOD COUNT 4.32 10^6/uL (4.70-6.10); RED CELL DISTRIBUTION WIDTH 13.8 % (12.0-15.0); WHITE BLOOD COUNT 17.2 x10^3/uL (4.8-10.8)
[2023-10-18 14:44] LABS: BILIRUBIN,URINE NEGATIVE (NEGATIVE); GLUCOSE, URINE (UA) NEGATIVE (NEGATIVE); KETONES,URINE (UA) NEGATIVE (NEGATIVE); LEUKOCYTE ESTERASE, URINE NEGATIVE (NEGATIVE); NITRITE,URINE NEGATIVE (NEGATIVE); OCCULT BLOOD,URINE NEGATIVE (NEGATIVE); PH,URINE 5.5 PH (5.0-7.5); PROTEIN,URINE NEGATIVE (NEGATIVE); UROBILINOGEN,URINE 0.2 (NORMAL) E.U./dL (NORMAL)
[2023-10-18 14:45] LABS: CLARITY,URINE CLEAR (CLEAR)
[2023-10-18 14:52] LABS: CALCIUM 9.2 mg/dL (8.5-10.3); CREATININE 1.4 mg/dL (0.6-1.3); PHOSPHORUS 3.7 mg/dL (2.5-5.0); POTASSIUM 4.2 mmol/L (3.5-4.5)
[2023-10-18 14:55] LABS: CREATININE,URINE 19.9 mg/dL; TOTAL PROTEIN,URINE TIMED < 4 mg/dL
[2023-10-18 15:02] LABS: MICROALBUMIN,URINE < 0.7 mg/dL
[2023-10-18 15:09] LABS: FERRITIN 497.6 ng/mL (23.9-336.2)
== END 2023-10-18 11:01 | disposition home or self-care (01) ==
LOC: LAB.S 11:00
PROVIDERS: ATTEND Internal Medicine Nephrology
DX: I13.0 Hypertensive heart and chronic kidney disease with heart failure and stage 1 through stage 4 chronic kidney disease, or unspecified chronic kidney disease (principal); N18.31 Chronic kidney disease, stage 3a; I50.22 Chronic systolic (congestive) heart failure
CPT/HCPCS: 36415; 80069; 81001; 81003; 82043; 82306; 82570; 82728; 83540; 83970; 84156; 84466; 85027; 87086